=== PATIENT | female | born 1985 | race Caucasian/White ===

== ENCOUNTER 2025-03-30 05:42 | Emergency (ER) | payer OTHER, SELFPAY ==
--- NOTE | 2025-03-30 05:43 | EKG_ITS ---
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1985 Requested By: ED Temporary Provider Order Number: [id number] Reading MD: ED Temporary Provider Measurements Intervals [place] Rate: 118 P: NM: QRS: -57 QRSD: 102 T: 101 QT: 355 QTc: 499 Interpretive Statements ATRIAL FIBRILLATION WITH RAPID VENTRICULAR RESPONSE LEFT ANTERIOR FASCICULAR BLOCK [QRS AXIS <= -45, QR IN I, RS IN II] POSSIBLE ANTERIOR MYOCARDIAL INFARCTION , OF INDETERMINATE AGE [30 ms Q WAVE IN V3/V4, OR R < 0.2 mV IN V4] Compared to ECG 12/30/2022 13:21:05 Sinus tachycardia no longer present Atrial abnormality no longer present Myocardial infarct finding still present /store/S0/[id number]
[2025-03-30 05:49] VITALS: BP 129/99; PULSE 120; RESP 19; TEMP 35.5; O2SAT 97
--- NOTE | 2025-03-30 06:22 | PD.EDADULT ---
ED General RME/HPI General Chief complaint: Chest Pain Stated complaint: CHEST PAIN Time Seen by Provider: 03/30/25 05:57 Arrival date/time: 03/30/25 05:42 Related Data Home Medications ?Medication ?Instructions ?Recorded ?Confirmed Hydrocodone/Acetaminophen (NORCO 1 tab PO Q4-6HRPRN PRN PAIN #0 tabs 06/02/14 5/325) ibuprofen 800 mg tablet 800 mg PO Q6HR PRN PAIN #0 tabs 06/02/14 Allergies Allergy/AdvReac Type Severity Reaction Status Date / Time diphenhydramine Allergy Mild ANAPHALATIC Verified 12/30/22 12:41 REACTION Review of Systems Review of Systems Systems Reviewed: All systems reviewed, normal except as documented ED Exam Narrative Physical exam: GENERAL: NAD, AAOx3 HEENT: Moist mucosa. Eyes open, symmetrical, & clear CARDIO: Heart RRR, no obvious murmurs PULM: No noted coughing/dyspnea CTA B/L, no R/W/R GI: Abdomen soft, nondistended, no pain on palpation. BSx4 SKIN/MSK/EXT: No wounds/rashes/edema/amputations, no pain on palpation. Pedal pulses present B/L NEURO: AAOx3, no focal neuro deficits, able to move all 4 extremities Course Course Course Narrative: See MDM Quality Measures none Orders Category Date Time Status EKG (ED ONLY) *Do not use* NOW Care 03/30/25 05:43 Completed Fingerstick [Bedside Blood Glucose] NOW Care 03/30/25 06:32 Active EKG (ED Only) Stat Exams 03/30/25 05:43 Draft CBC [CBC] Stat Lab 03/30/25 07:36 Ordered CMP [Comprehensive Metabolic Panel] Stat Lab 03/30/25 07:36 Ordered Mag [Magnesium] Stat Lab 03/30/25 07:37 Ordered Gabapentin [Neurontin] Med 03/30/25 06:32 Discontinued 600 mg PO X1 ONE Gabapentin [Neurontin] Med 03/30/25 06:51 Discontinued 600 mg PO X1 ONE Metoprolol Tartrate [Lopressor] Med 03/30/25 07:35 Once 25 mg PO X1 ONE Pantoprazole [Protonix] Med 03/30/25 06:51 Discontinued 40 mg PO X1 ONE Vital Signs Vital signs: Vital Signs Temperature 96 F L 03/30/25 05:49 Pulse Rate 120 H 07/16/25 05:49 Respiratory Rate 19 03/30/25 05:49 Blood Pressure 129/99 H 03/30/25 05:49 Pulse Oximetry (%) 97 03/30/25 05:49 Oxygen Delivery Method Room Air 03/30/25 05:49 Discharge Plan Prescriptions/Referrals Prescriptions/Med Rec: No Action Hydrocodone/Acetaminophen (NORCO 5/325) 1 TAB tablet 1 tab PO Q4-6HRPRN PRN (Reason: PAIN) Qty: 0 Patient Comments: FOR PAIN ibuprofen 800 MG tablet 800 mg PO Q6HR PRN (Reason: PAIN) Qty: 0 Problem List Clinical Impression: Peripheral neuropathic pain Patient/Caregiver Discharge Instructions Additional Instructions: Patient at this time is safe for discharge with strict return precautions. Patient counseled on medication compliance. Should any symptoms recur or worsen patient is instructed to return to the ED. Print Language: Greenlandic Stand Alone Forms: Mireya Award Info., Patient Portal Info Letter MDM Narrative MDM hospital course: 39-year-old female with past medical history of CHF, diabetes, hypertension who presented to the ED due to burning sensation in her extremities. Patient states that he suddenly woke up at 4:30 in the morning complaining of burning sensation in bilateral upper extremities. Patient states she hasnt taken her meds in two days. Patient states she takes [place] for pain. No active signs of fluid overload at this time, no swelling, no JVD, no crackles on auscultation 0628: EKG reviewed no acute ST changes, Atrial fibrillation gabapentin [id number] but patient refused wants something stronger 0740: Patient eloped with incomplete work up after refusing treatment. Clinical Information Provided by patient and parent Medical Records Reviewed None Chronic Illness/Social Conditions which may negatively complicate care or outcome(s)-explain: CHF/CAD/Cardiac illness EKG Interpretation EKG #1: Date/time of EK03/30/25 6:53 am Medication Administration(s) Medication Administration History Discontinued Medications Gabapentin (Gabapentin 300 Mg Capsule) 600 mg PO X1 ONE Stop: 03/30/25 06:33 Gabapentin (Gabapentin 300 Mg Capsule) 600 mg PO X1 ONE Stop: 03/30/25 06:52 Last Admin: 03/30/25 07:01 Dose: Not Given Documented By: CVL Non-Admin Reason: Patient Refused Metoprolol Tartrate (Metoprolol Tartrate 25 Mg Tablet) 25 mg PO X1 ONE Stop: 03/30/25 07:36 Pantoprazole Sodium (Pantoprazole 40 Mg Tablet) 40 mg PO X1 ONE Stop: 03/30/25 06:52 Last Admin: 03/30/25 07:00 Dose: 40 mg Documented By: CHUN
[2025-03-30] MEDS: PANTOPRAZOLE 40 MG TABLET PO (07:00)
--- NOTE | 2025-03-30 07:40 | PC.NURSE ---
attempted to call pt by phone, wrong number on patients chart. unable to contact.
--- NOTE | 2025-03-30 07:40 | PC.NURSE ---
pt laying in RME room, instructed pt wait in lobby. went to discuss EKG with provider. went to call back pt fore re-assessment. pt not found in or outside of lobby. per senior security engineer, pt seen leaving in car.
== END 2025-03-30 07:40 | disposition left against medical advice (07) ==
PROVIDERS: Emergency Provider Student in an Organized Health Care Education/Training Program
DX: R07.9 Chest pain, unspecified (principal); Z53.29 Procedure and treatment not carried out because of patient's decision for other reasons; I48.91 Unspecified atrial fibrillation; I44.4 Left anterior fascicular block
CPT/HCPCS: 80053; 83735; 85025; 93005; 99283; A9270

== ENCOUNTER 2025-04-03 02:37 | Inpatient (IN) | payer OTHER, SELFPAY ==
[2025-04-03] VITALS (14 sets, daily range): BP systolic 117–140; BP diastolic 82–106; PULSE 59–84; RESP 14–94; TEMP 36–37; O2SAT 92–99; BMI 32.5; BMI 32.6
--- NOTE | 2025-04-03 02:46 | PD.EDDIZZY ---
ED Dizzyness RME/HPI General Chief Complaint: Dizziness Stated Complaint: DIZZINESS Time Seen by Provider: 04/03/25 03:47 Arrival date/time: 04/03/25 02:37 RME / HPI RME / HPI Narrative: This section includes all my notes and documentations, including HPI, PE, and ED course. Benny Tamayo MD HPI: ROS: All negative except as documented in HPI. Physical Exam: General: Alert and oriented. Eyes: Conjunctivae and lids clear. ENT: No nasal congestion. Neck: Supple. Lungs: No respiratory distress. Skin: Warm and dry. Neuro: Alert and oriented X 3. Physical Exam: General: Alert and oriented. No acute distress when remaining still. Eyes: Conjunctivae and lids clear. ENT: No nasal congestion. Neck: Supple. Heart: RRR. Lungs: No respiratory distress. Good air movement. No rhonchi, wheezing, rales. Abdomen: Soft and nontender. Normal bowel sounds. No distension. No rebound or guarding. Back: No CVA tenderness. Skin: Warm and dry. Neuro: Alert and oriented X 3. Physical Exam: General: Alert and oriented. No acute distress. Eyes: Conjunctivae and lids clear. EOMI. PERRL. ENT: No nasal congestion. Pharynx normal. Tympanic membrane normal bilaterally. Neck: Supple. No lymphadenopathy. No JVD. Heart: RRR. Lungs: No respiratory distress. Good air movement. No rhonchi, wheezing, rales. Chest: No tenderness. Abdomen: Soft and nontender. Normal bowel sounds. No distension. No rebound or guarding. Back: No CVA tenderness. Legs: No clubbing, cyanosis, edema. Skin: Warm and dry. Neuro: Alert and oriented X 3. Cranial Nerves II-XII grossly intact. No peripheral motor deficits. Musculoskeletal: All major joints and bones are not tender with no limited ROM. I reviewed EMS notes. I reviewed all diagnostic test results: My interpretation of the EKG is: Sinus rhythm (72 bpm) with nonspecific ST-T changes. Benny Tamayo MD My interpretation of the chest x-ray is: My review of the CT report is: Blood tests and urine tests Covid/Influenza At this point, diagnoses include: Treatment here included: Xanax 0.5 mg. Significant improvement Recommended Not yet done: I discussed the case with our hospitalist. About the presentation and exam and diagnostics and treatments here. And need of further care in the hospital. Will accept the patient. Not yet done: Based on my best medical judgment, made decision no further evaluation or treatment indicated at this time. Patient understands and agrees to the discharge instructions customized and printed, see below. Benny Tamayo MD Related Data Home Medications ?Medication ?Instructions ?Recorded ?Confirmed acetaminophen 500 mg tablet mg 04/03/25 baclofen 10 mg tablet mg 04/03/25 escitalopram oxalate 10 mg tablet 10 mg PO QDAY 04/03/25 04/03/25 metoprolol tartrate 25 mg tablet mg 04/03/25 Allergies Allergy/AdvReac Type Severity Reaction Status Date / Time diphenhydramine Allergy Mild ANAPHALATIC Verified 12/30/22 12:41 REACTION Review of Systems Review of Systems Systems Reviewed: All systems reviewed, normal except as documented Past Medical History Social History SMOKING STATUS: Never smoker ED Exam Narrative Physical exam: Refer to HPI Course Quality Measures none Orders Category Date Time Status EKG (ED ONLY) *Do not use* NOW Care 04/03/25 03:28 Active Saline [Insert IV] NOW Care 04/03/25 03:48 Active Straight [In and Out Catheter] X1 Care 04/03/25 03:48 Active EKG (ED Only) Stat Exams 04/03/25 03:28 Draft BMP [Basic Metabolic Panel] Stat Lab 04/03/25 03:48 Ordered CBC Stat Lab 04/03/25 03:49 Ordered Free T4 (Free Thyroxine) Stat Lab 04/03/25 03:48 Ordered Magnesium Stat Lab 04/03/25 03:48 Ordered TSH [Thyroid Stimulating Hormone] Stat Lab 04/03/25 03:48 Ordered Troponin I Stat Lab 04/03/25 03:48 Ordered UA, C/S IF [Urinalysis, C/S if Indicated] Stat Lab 04/03/25 03:49 Ordered ALPRazoLAM [Xanax] Med 04/03/25 03:36 Discontinued 0.5 mg PO X1 ONE Dizziness MDM Narrative MDM Narrative:: Scribe Attestation: I, Sera Clayton, am scribing for and in the presence of Dr. Tamayo. Provider Notation: Although this document has been carefully reviewed, there may still be some phonetic and other typographical errors.? These errors are purely grammatical due to imperfections in the software program and should not be construed in any way to? compromise the substance of the patient's medical care during this visit. Patient data External records reviewed:: [facility] previous records and EMS form Clinical information provided by:: patient and EMS Social determinants that could affect healthcare access:: none Patient has the following chronic illnesses:: None reported How is presenting disease/condition affected by chronic disease/condition?: exacerbated by Evaluation data The following diagnostics were reviewed and interpreted by me:: lab results and EKG tracing(s) (My interpretation of the EKG is: Sinus rhythm (72 bpm) with nonspecific ST-T changes. Benny Tamayo MD) Lab and/or radiology exams considered but not ordered:: None Medications / Prescriptions Medications or Prescriptions considered but not ordered:: None Medication administrations:: Medication Administration History Discontinued Medications Alprazolam (Alprazolam 0.25 Mg Tablet) 0.5 mg PO X1 ONE Stop: 04/03/25 03:37 Xanax 0.5 mg Discharge Plan Prescriptions/Referrals Prescriptions/Med Rec: No Action acetaminophen 500 mg tablet baclofen 10 mg tablet metoprolol tartrate 25 mg tablet Patient Comments: TAKE 1 TABLET BY MOUTH TWICE A DAY escitalopram oxalate 10 mg tablet 10 mg PO QDAY Referrals: No Primary/Family,Physician [Primary Care Provider] - In 1 week Patient/Caregiver Discharge Instructions Print Language: Serbian
--- NOTE | 2025-04-03 03:28 | EKG_ITS ---
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1985 Requested By: Benny Hurt Order Number: [id number] Reading MD: Benny Hurt Measurements Intervals [place] Rate: 72 P: 48 CO: 167 QRS: -61 QRSD: 107 T: 92 QT: 447 QTc: 493 Interpretive Statements SINUS RHYTHM POSSIBLE LEFT ATRIAL ENLARGEMENT [-0.1mV P-WAVE IN V1/V2] INCOMPLETE RIGHT BUNDLE BRANCH BLOCK [90+ ms QRS DURATION, TERMINAL R IN V1/V2, 40+ ms S IN I/aVL/V4/V5/V6] LEFT ANTERIOR FASCICULAR BLOCK [QRS AXIS <= -45, QR IN I, RS IN II] POSSIBLE ANTERIOR MYOCARDIAL INFARCTION , OF INDETERMINATE AGE [30 ms Q WAVE IN V3/V4, OR R < 0.2 mV IN V4] Compared to ECG 03/30/2025 05:52:53 Incomplete right bundle-branch block now present Atrial fibrillation no longer present Myocardial infarct finding still present /store/S0/[id number]/[id number].pdf
--- NOTE | 2025-04-03 04:00 | PC.NURSE ---
THIS RN ATTEMPTED IV ON PATIENT FOR BLOOD WORK. PER PT I DO NOT HAVE ANY GOOD VEINS I USED TO USE IV DRUGS YOU HAVE TO USE A MACHINE TO FIND A VEIN. . THIS RN EXPLAINED THE IMPORTANCE OF HAVING TO ATTEMPT TO INSERT IV TO DRAW BLOOD DUE TO REPORTED CHEST PAIN. PER PATIENT I WILL LET YOU POKE ME ONCE AND THEN YOU HAVE TO USE A MACHINE. .
--- NOTE | 2025-04-03 04:01 | PD.EDANX ---
ED Anxiety RME/HPI General Chief Complaint: Dizziness Stated Complaint: DIZZINESS Time Seen by Provider: 04/03/25 03:47 Arrival date/time: 04/03/25 02:37 RME / HPI RME / HPI narrative: This section includes all my notes and documentations, including HPI, PE, and ED course. Benny Tamayo MD HPI: 39 y/o female BIBA from home complaining of anxiety. Difficult obtaining history from the patient. Because she has trouble answering questions directly. When she repeatedly cries out for help. But doesn't express how she can be helped. She reports chest discomfort. But has trouble describing the quality and quantity and localizing the discomfort. Uncertain about exacerbating factors or relieving factors. No other obvious concerns. ROS: All negative except as documented in HPI. Physical Exam: General: Alert. Appears anxious. Eyes: Conjunctivae and lids clear. ENT: No nasal congestion. Neck: Supple. Heart: RRR. Lungs: No respiratory distress. Good air movement. No rhonchi, wheezing, rales. Abdomen: Soft and nontender. Skin: Warm and dry. Neuro: Cranial nerves II to XII grossly normal. No peripheral motor deficits. I reviewed EMS notes. My interpretation of the EKG is: Sinus rhythm (72 bpm) with nonspecific ST-T changes. I ordered Xanax and diagnostic tests At 6 AM on 04/03/25, the care of the patient was transferred to Dr. Epps. Benny Tamayo MD Related Data Home Medications ?Medication ?Instructions ?Recorded ?Confirmed acetaminophen 500 mg tablet mg 04/03/25 baclofen 10 mg tablet mg 04/03/25 escitalopram oxalate 10 mg tablet 10 mg PO QDAY 04/03/25 04/03/25 metoprolol tartrate 25 mg tablet mg 04/03/25 Allergies Allergy/AdvReac Type Severity Reaction Status Date / Time diphenhydramine Allergy Mild ANAPHALATIC Verified 12/30/22 12:41 REACTION Review of Systems Review of Systems Systems Reviewed: All systems reviewed, normal except as documented ED Exam Narrative Physical exam: Refer to [facility] Course Quality Measures none Orders Category Date Time Status EKG (ED ONLY) *Do not use* NOW Care 04/03/25 03:28 Active Saline [Insert IV] NOW Care 04/03/25 03:48 Active Straight [In and Out Catheter] X1 Care 04/03/25 03:48 Active EKG (ED Only) Stat Exams 04/03/25 03:28 Draft BMP [Basic Metabolic Panel] Stat Lab 04/03/25 03:48 Ordered CBC Stat Lab 04/03/25 03:49 Ordered Free T4 (Free Thyroxine) Stat Lab 04/03/25 03:48 Ordered Magnesium Stat Lab 04/03/25 03:48 Ordered TSH [Thyroid Stimulating Hormone] Stat Lab 04/03/25 03:48 Ordered Troponin I Stat Lab 04/03/25 03:48 Ordered UA, C/S IF [Urinalysis, C/S if Indicated] Stat Lab 04/03/25 03:49 Ordered ALPRazoLAM [Xanax] Med 04/03/25 03:36 Discontinued 0.5 mg PO X1 ONE Anxiety MDM Narrative MDM Narrative: Scribe Attestation: I, Sera Clayton, am scribing for and in the presence of Dr. Tamayo. Provider Notation: Although this document has been carefully reviewed, there may still be some phonetic and other typographical errors.? These errors are purely grammatical due to imperfections in the software program and should not be construed in any way to? compromise the substance of the patient's medical care during this visit. 39 y/o female BIBA from home complaining of anxiety. Difficult obtaining history from the patient. Because she has trouble answering questions directly. When she repeatedly cries out for help. But doesn't express how she can be helped. She reports chest discomfort. But has trouble describing the quality and quantity and localizing the discomfort. Uncertain about exacerbating factors or relieving factors. No other obvious concerns. Patient data External records reviewed:: [facility] previous records (Reviewed prior ED records from 03/30/25. Patient was seen for Peripheral neuropathic pain.) and EMS form Clinical information provided by:: patient and EMS Social determinants that could affect healthcare access:: mental health (Anxiety) Patient has the following chronic illnesses:: None reported How is presenting disease/condition affected by chronic disease/condition?: no chronic disease Evaluation data The following diagnostics were reviewed and interpreted by me:: EKG tracing(s) (My interpretation of the EKG is: Sinus rhythm (72 bpm) with nonspecific ST-T changes. Benny Tamayo MD) Lab and/or radiology exams considered but not ordered:: None Interpretation Summary: Diagnostic tests are pending. Medications / Prescriptions Medications or Prescriptions considered but not ordered:: None Medication administrations:: Medication Administration History Discontinued Medications Alprazolam (Alprazolam 0.25 Mg Tablet) 0.5 mg PO X1 ONE Stop: 04/03/25 03:37 Consultations Consultation(s) initiated? (list below): No Diagnosis Differential diagnosis anxiety: hyperventilation, panic disorder and acute anxiety Most likely diagnosis given after review of the tests above:: Diagnostic tests are pending. Admission Indicated Admission indicated?: not indicated Explain why admission is indicated or not indicated:: Diagnostic tests are pending. Admission Request Was there a request for admission?: No Disposition Plan Disposition Plan: other (specify) (At 6 AM on 04/03/2025, the care of the patient was transferred to Dr. Epps. ) Discharge Plan Prescriptions/Referrals Prescriptions/Med Rec: No Action acetaminophen 500 mg tablet baclofen 10 mg tablet metoprolol tartrate 25 mg tablet Patient Comments: TAKE 1 TABLET BY MOUTH TWICE A DAY escitalopram oxalate 10 mg tablet 10 mg PO QDAY Referrals: No Primary/Family,Physician [Primary Care Provider] - In 1 week Problem List Clinical Impression: Anxiety Patient/Caregiver Discharge Instructions Print Language: Greenlandic
[2025-04-03 04:42] LABS: Collection Type, Urine Clean Catch; RBC,Urine 0 /hpf (0-3); WBC,Urine 0 /hpf (0-5)
--- NOTE | 2025-04-03 04:50 | PC.NURSE ---
INFORMED PROVIDER RUDI FREDERICK IS A HARD STICK. UNABLE TO GET ACCESS ON PATIENT. ICU CALLED FOR ASSISTANCE WITH US GUIDED IV. NO ORDERS RECEIVED.
[2025-04-03 05:16] LABS: Bilirubin,Urine Negative (Negative); Blood,Urine Negative (Negative); Clarity,Urine Turbid (Clear/Hazy); Color,Urine Yellow (Lt Yel-Yel); Culture Indicated,Urine Not Indicated; Glucose, Urine Negative (Negative); Hyaline Casts,Urine < 1 /hpf (0-1); Ketones,Urine Negative (Negative); Leukocyte Esterase,Urine Negative (Negative); Nitrite,Urine Negative (Negative); PH,Urine 6.0 (5.0-7.0); Protein,Urine 1+ (Neg - Trace); Specific Gravity,Urine 1.012 (1.001-1.035); Squamous Epithelial Cell,Urine 18 /hpf (0-5); Urobilinogen,Urine 8.0 mg/dL (0.0-1.0)
--- NOTE | 2025-04-03 05:20 | PC.NURSE ---
INFORMED PROVIDER RUDI ICU UNSUCCESSFUL IN OBTAINING US GUIDED IV. WILL REATTEMPT TO GAIN IV ACCESS.
[2025-04-03 05:46] LABS: Basophils # (Auto) 0.1 Thou/mm3 (0.0-0.2); Basophils % (Auto) 1 % (0-2.5); Eosinophils # (Auto) 0.0 Thou/mm3 (0.0-0.5); Eosinophils % (Auto) 0 % (0-10); Hematocrit 43.7 % (36.0-46.0); Hemoglobin 14.0 g/dL (12.0-16.0); Immature Granulocytes Auto 0.05 Thou/mm3 (0.00-0.00); Lymphocytes # (Auto) 2.5 Thou/mm3 (1.0-4.8); Lymphocytes % (Auto) 28 % (10-50); Mean Corpuscular HGB Conc 32.0 g/dl (31.0-37.0); Mean Corpuscular Hemoglobin 24.8 pg (25.0-35.0); Mean Corpuscular Volume 78 fL (80-100); Monocytes # (Auto) 0.8 Thou/mm3 (0.0-0.8); Monocytes % (Auto) 9 % (0-12); Neutrophils # (Auto) 5.4 Thou/mm3 (1.8-7.7); Neutrophils % (Auto) 61 % (37-80); Nucleated Red Blood Cell # 0.02 Thou/mm3 (0.00-0.00); Nucleated Red Blood Cell % 0 /100 WBC (0); Platelet Count 241 Thou/mm3 (140-440); RDW Standard Deviation 47.9 fL (36.4-46.3); Red Blood Count 5.64 Miln/mm3 (4.00-5.20); White Blood Count 9.0 Thou/mm3 (3.6-11.0)
[2025-04-03 06:07] LABS: Amphetamine/Methamp Scrn,U Negative (Negative); Barbiturate Screen,Urine Negative (Negative); Benzodiazepines Screen,Urine Negative (Negative); Benzoylecgonine Screen, Ur Negative (Negative); Fentanyl Screen,Urine Negative (Negative); Opiate Screen,Urine Positive (Negative); THC Screen,Urine Positive (Negative)
--- NOTE | 2025-04-03 06:16 | PD.EDADDENDU ---
Emergency Room Addendum <Wanda Christensen - Last Filed: 04/03/25 08:52> Addendum Narrative: 0600: Care assumed from Dr. Tamayo, the previous shift emergency physician. Past medical, surgical, social and family history reviewed. Vitals and home medications reviewed. I will assume the care of the patient at this time, pending labs and reassessment. Please refer to the emergency department record for history and examination from initial visit.?The following addendum documentation note is intended to reflect any pending information, findings, or radiology results not included in the patient?s initial chart. 0634: Notified by RN that troponin is elevated, will repeat EKG. We reviewed all the results, analysis, and treatment plans. Discussed in great length the importance of being admitted for further work-up. Patient is amenable to admission. 08:[address] Fernando (gas regulator repairer waterfront director for the ER). We discussed the patient's case in detail. He said that we should heparinize the patient and get her admitted and he will see her. I then called the resident for Dr. Chau at 08:30. We discussed patient's case in detail as well and they will come down and see the patient for admission. Patient's hypokalemia is being treated as well as her hypomagnesemia. Initial troponin 3.0 and repeat 2.8. EKGs are unchanged and there was a 4-1/2-hour gap between them. 03:32 EKG #1: Normal sinus rhythm at 72 with left axis deviation, no ectopy. ST and T wave abnormalities in leads I, aVL. Q waves in V3 V4 as well as leads III and aVF. No STEMI. 07:53 EKG #2: Normal sinus rhythm at 75 with left axis deviation, no ectopy, ST and T wave abnormalities in leads I and aVL. Q waves in V1 and V2 as well as questionable Q waves in the inferior leads. No STEMI. No appreciable change from prior <Ismael Dolan MD - Last Filed: 04/03/25 08:35> Addendum Narrative: 0600: Care assumed from Dr. Tamayo, the previous shift emergency physician. Past medical, surgical, social and family history reviewed. Vitals and home medications reviewed. I will assume the care of the patient at this time, pending labs and reassessment. Please refer to the emergency department record for history and examination from initial visit.?The following addendum documentation note is intended to reflect any pending information, findings, or radiology results not included in the patient?s initial chart. 0634: Notified by RN that troponin is elevated, will repeat EKG. 08:[address] Fernando (gas regulator repairer waterfront director for the ER). We discussed the patient's case in detail. He said that we should heparinize the patient and get her admitted and he will see her. I then called the resident for Dr. Chau at 08:30. We discussed patient's case in detail as well and they will come down and see the patient for admission. Patient's hypokalemia is being treated as well as her hypomagnesemia. Initial troponin 3.0 and repeat 2.8. EKGs are unchanged and there was a 4-1/2-hour gap between them. 03:32 EKG #1: Normal sinus rhythm at 72 with left axis deviation, no ectopy. ST and T wave abnormalities in leads I, aVL. Q waves in V3 V4 as well as leads III and aVF. No STEMI. 07:53 EKG #2: Normal sinus rhythm at 75 with left axis deviation, no ectopy, ST and T wave abnormalities in leads I and aVL. Q waves in V1 and V2 as well as questionable Q waves in the inferior leads. No STEMI. No appreciable change from prior Critical Care Time <Wanda Christensen - Last Filed: 04/03/25 08:52> Critical Care Time Critical Care Time: Yes Total Critical Care Time (min.): 35 Attestation: The high probability of sudden, clinically significant deterioration in the patient's condition required the highest level of my preparedness to intervene urgently. The services I provided to this patient were to treat and/or prevent clinically significant deterioration. Services included the following: chart data review, reviewing nursing notes and/or old charts, documentation time, marketing database consultant collaboration regarding findings and treatment options, medication orders and management, direct patient care, vital sign assessments and ordering, interpreting and reviewing diagnostic studies and lab tests. Aggregate critical care time includes only time during which I was engaged in work directly related to the patient's care, as described above, whether at bedside or elsewhere in the Emergency Department. It did not include time spent performing other reported procedures or the services of residents, students, nurses or physician assistants.
[2025-04-03 06:21] LABS: Alcohol, Blood Medical < 3.0 mg/dL (0-10.0); Anion Gap 12 (7-16); BUN/Creatinine Ratio 12 Ratio (12-20); Blood Urea Nitrogen 11 mg/dL (9-23); Calcium 8.3 mg/dL (8.3-10.6); Carbon Dioxide 22.4 mMol/L (20.0-31.0); Chloride 99 mMol/L (98-107); Creatinine (Component) 0.9 mg/dL (0.6-1.3); Estimated Creatinine Clearance 88.3 mL/min (>60); Free T4 (Free Thyroxine) 0.83 ng/dL (0.89-1.76); Glucose 97 mg/dL (74-106); Magnesium 1.2 mg/dL (1.6-2.6); Osmolality,Calculated 265 (275-295); Potassium 4.0 mMol/L (3.4-5.1); Sodium 133 mMol/L (136-145); Thyroid Stimulating Hormone 4.11 uIU/mL (0.55-4.78); eGFR > 60 See Note
[2025-04-03 06:32] LABS: Troponin I 3.041 ng/mL (0.0-0.045)
--- NOTE | 2025-04-03 06:43 | EKG_ITS ---
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1985 Requested By: Ismael Cooper Order Number: [id number] Reading MD: Ismael Cooper Measurements Intervals [place] Rate: 75 P: 61 [place]: 167 QRS: -72 QRSD: 106 T: 84 QT: 446 QTc: 501 Interpretive Statements SINUS RHYTHM LEFT ATRIAL ENLARGEMENT [-0.15mV P-WAVE IN V1/V2] INCOMPLETE RIGHT BUNDLE BRANCH BLOCK [90+ ms QRS DURATION, TERMINAL R IN V1/V2, 40+ ms S IN I/aVL/V4/V5/V6] LEFT ANTERIOR FASCICULAR BLOCK [QRS AXIS <= -45, QR IN I, RS IN II] POSSIBLE ANTERIOR MYOCARDIAL INFARCTION , OF INDETERMINATE AGE [30 ms Q WAVE IN V3/V4, OR R < 0.2 mV IN V4] Compared to ECG 04/03/2025 03:32:26 No significant changes /store/S0/[id number]
--- NOTE | 2025-04-03 07:32 | PC.NURSE ---
Pt awake alert, GCS15 upon assumption of care, denies any current pain, states she feels loopy. Pt request to rest, pt hypertensive on tele. Call corona in reach, will cont w/poc
[2025-04-03 07:48] LABS: Troponin I 2.814 ng/mL (0.0-0.045)
--- NOTE | 2025-04-03 07:54 | XR_ITS ---
Examination: AP chest single view. Technique: Sitting portable AP chest single view. Date and time: April 03, 2025, 0811 hrs., Comparison July 14, 2009. Indications: Chest pain today. Findings: Moderate enlargement cardiac contour. No pneumonia or pulmonary edema. Mild osteopenia. Impression: Moderate enlargement cardiac contour, differential would include pericardial effusion.
[2025-04-03] MEDS: Magnesium Sulfate 4 GM Ivpb 4 GM/50 ML BAG IV (07:59)
--- NOTE | 2025-04-03 08:38 | XR_ITS ---
Examination: CT brain head without contrast. 2-D sagittal coronal reconstructions Date and time of exam:April 03, 2025, 0918 hrs. Indications: Onset dizziness beginning this morning CTDI: vol (mGy):47.5 DLP: (mGycm):942 Technique: Multiple CT axial sections of the brain have been obtained, 5 mm slice thickness. Contrast has not been administered. 2-D sagittal, coronal reconstructions have been obtained Low dose protocols were performed. One or more of the following dose reduction techniques were used; automated exposure control, adjustment of the mA and/or KV according to patient size, use of iterative reconstruction technique. Findings: No significant ventricular enlargement. Intra-axial or extra-axial hemorrhage density is not seen. No mass effect or midline shift Basal cisterns are not remarkable. Fourth ventricle is midline. Cranial vault intact. Impression: Negative for acute hemorrhage, mass effect or midline shift
--- NOTE | 2025-04-03 08:45 | ECHO_ITS ---
Transthoracic Echo Report Ht (in): 64 Wt (lb): 190 Exam Location: Echo Lab Status: Inpatient Cost Estimating Clerk: Amy Mckinney Indications: Procedure Performed: BP: 132 / 99 HR: 79 Technical Quality: Technically difficult study MEASUREMENTS (Male / Female) Normal Values 2D ECHO LV Diastolic Diameter PLAX 5.6 cm 4.2 - 5.9 / 3.9 - 5.3 cm LV Systolic Diameter PLAX 5.1 cm IVS Diastolic Thickness 1.1 cm 0.6 - 1.0 / 0.6 - 0.9 cm LVPW Diastolic Thickness 1.4 cm 0.6 - 1.0 / 0.6 - 0.9 cm LV Relative Wall Thickness 0.4 LVOT Diameter 2.0 cm Aortic Root Diameter 2.7 cm LA Systolic Diameter LX 3.7 cm 3.0 - 4.0 / 2.7 - 3.8 cm LA Volume Index 26.2 cm?/m? 16 - 28 cm?/m? M-MODE Aortic Root Diameter MM 1.6 cm LA Systolic Diameter MM 4.2 cm LA Ao Ratio MM 2.6 AV Cusp Separation MM 1.2 cm DOPPLER MV Area PHT 8.5 cm? MR Peak Velocity 298.0 cm/s MR Peak Gradient 35.5 mmHg Mitral E Point Velocity 59.2 cm/s Mitral A Point Velocity 32.0 cm/s Mitral E to A Ratio 1.9 LV E' Lateral Velocity 6.3 cm/s Mitral E to LV E' Lateral Ratio 9.4 LV E' Septal Velocity 2.9 cm/s Mitral E to LV E' Septal Ratio 20.1 TR Peak Velocity 240.0 cm/s TR Peak Gradient 23.0 mmHg PV Peak Velocity 66.5 cm/s PV Peak Gradient 1.8 mmHg FINDINGS Left Ventricle Left ventricle is dilated measured 5.6 cm with severe global hypokinesis severely depressed left ventricle ejection fraction of 15%. There is evidence of apical mural thrombus 1 cm wide and 2 cm in length along the anteroapical segments. This appears to be chronic thrombus in echogenicity. Right Ventricle The right ventricle is normal in size and systolic function. Left Atrium The left atrium is normal by two-dimensional, color flow and Doppler imaging with no structural abnormalities, no thrombus formation present. Right Atrium The right atrial cavity size is moderately increased. Atrial Septum The interatrial septum appears normal with no evidence of a shunt. Aorta The aorta is normal by two-dimensional, color flow and Doppler interrogation. Mitral Valve The mitral valve is normal by two-dimensional, color flow and Doppler interrogation. Mild mitral regurgitation. Aortic Valve Trace aortic valve regurgitation. Tricuspid Valve The tricuspid valve is normal by two-dimensional, color flow and Doppler interrogation. There is mild tricuspid valve regurgitation. Pulmonic Valve The pulmonic valve is not well visualized. There is no significant pulmonic valve regurgitation. Vessels Inferior vena cava not well visualized. Pericardium The pericardium is normal by two-dimensional imaging. There is no significant pericardial effusion. CONCLUSIONS Indication: NSTEMI Dilated nonischemic cardiomyopathy with severe global hypokinesis ejection fraction of 15% with evidence of left ventricular apical mural thrombus, 2 cm x 1 cm appears to be chronic with echogenic appearance The RV is normal in size and systolic function. The RA cavity size is moderately increased. Mild mitral regurgitation due to dilated mitral annulus. Mild tricuspid regurgitation with normal PA pressures. Mean show Sandra Stearnsshahida (Electronically Signed) Final Date: 03 April 2025 15:40
[2025-04-03 13:24] LABS: Alanine Aminotransferase 417 U/L (10-49); Albumin, Serum 3.3 gm/dL (3.5-5.0); Alkaline Phosphatase 167 U/L (46-116); Aspartate Amino Transferase 414 U/L (0-34); Bilirubin,Direct 0.7 mg/dL (0.0-0.3); Bilirubin,Total 1.4 mg/dL (0.3-1.2); Total Protein 6.1 gm/dL (5.7-8.2)
[2025-04-03 13:29] LABS: Troponin I 2.984 ng/mL (0.0-0.045)
[2025-04-03 13:47] LABS: INR 1.8 (0.9-1.3); Partial Thromboplastin Time 31.0 Seconds (22.0-36.0); Prothrombin Time 19.0 Seconds (9.0-12.2)
[2025-04-03] MEDS: HYDROcodone/APAP 5/325 TABLET 1 TAB PO ×2 (13:51→20:18)
[2025-04-03] MEDS: SERTRALINE HCL 25 MG TABLET PO ×2 (13:59→14:34)
[2025-04-03] MEDS: Heparin/D5w 25K 250 ML Ivpb 25,000 UNIT/250 ML BAG 10 UNIT IV (13:59)
--- NOTE | 2025-04-03 14:09 | EKG_ITS ---
[facility] Test Date: 2025-04-03 Pat Name: TRENT WADE Department: Room: S274A Gender: Female Spine Supervisor: ADRIANNE : 1985 Requested By: Jakob Castellanos Order Number: [id number] Reading MD: Jakob Castellanos Measurements Intervals [place] Rate: 77 P: 50 ME: 155 QRS: -65 QRSD: 101 T: 75 QT: 437 QTc: 495 Interpretive Statements SINUS RHYTHM POSSIBLE LEFT ATRIAL ENLARGEMENT LEFT ANTERIOR FASCICULAR BLOCK POSSIBLE ANTERIOR MYOCARDIAL INFARCTION , OF INDETERMINATE AGE Compared to ECG 04/03/2025 07:53:58 Incomplete right bundle-branch block no longer present Myocardial infarct finding still present /store/S0/[id number]/[id number].pdf
[2025-04-03] MEDS: LOSARTAN POTASSIUM 25 MG TABLET PO (14:34)
[2025-04-03] MEDS: METOPROLOL TARTRATE 25 MG TABLET PO ×2 (14:34→20:19)
[2025-04-03] MEDS: HEPARIN SOD INJ 5000 UNIT/ML VIAL 4000 UNIT IV (14:35)
--- NOTE | 2025-04-03 14:35 | ESHP_ITS ---
<Statement entered by Jakob Castellanos MD - 04/03/25 15:29> Patient was seen and examined in the ED. Patient's mother reported the patient had chest discomfort radiating to her left arm. She also with the patient has a history of anxiety at baseline and takes medications for it. She also has a history of meth use 2 weeks ago. Patient was anxious and reported that she feels diaphoretic clammy and she gets pain in her arm when she is in anxiety. She also reported to have back pain and is taking [place] for it at home. Follows [facility] as outpatient. Patient's vitals showed blood pressure within normal limits. Troponin I peaked at 3.04. EKG showed T wave inversions in lead V1 and V2. QTc was prolonged at 501. Avoid QTc prolonging agent. U tox was positive for opiates and THC. Head CT showed no acute changes. Chest x-ray was concerning for enlargement of cardiac control concerning for pericardial effusion. Cardiology has been consulted recommended to continue heparin drip and resume patient's home medications for anxiety. N.p.o. after midnight. Possible cardiac catheterization tomorrow. Will follow-up with echocardiogram. registered veterinary technician reported noticed thrombus in LV. Will follow-up with final official read. He recommended to continue aspirin and heparin per ACS protocol. Home medications were resumed. Electrolytes were repleted. All labs and orders were reviewed. I discussed and supervised with the internal communications manager physician who took care of this patient. I personally saw and examined the patient. I agree with most of the assessment and plan. Disclaimer: Despite multiple revisions, due to the dictation software being used, the document bellow may not be free of grammatical errors including phonetic/typographic errors. However, this does not deter from our commitment to providing health care in the patient's best interest in mind. Plan of care discussed with attending Physician Dr. lily Castellanos MD PGY-3 Documentation for date of: 04/03/25 HPI History of Present Illness Chief complaint: Dizziness History of present illness: Ms. Argueta is a 39F with history of DM2, herniated disc, meth use, and depression BIBA for dizziness. Pt states that her mom accidentally gave her double the dosage of what she's supposed to be taking, but unable to recall which medications were given to her. She has no recollection of memories up to her presence to the ER. On further evaluation, mom reports conflicting stgory. She called the ambulance because pt complained of chest pain, SOB, shocking sensation down her left arm, and was diaphoretic. On exam, pt was sleeping quietly in the room. Denies chest pain, shortness of breathe, abdominal pain, jaw pain, pain in extremities, or fever. Her only complaints are back pain and nausea. She was admitted for NSTEMI. ED Course In the ED, troponin was 3.04, 2.81, and 2.98. 1st EKG shows Normal sinus rhythm at 72 with left axis deviation, no ectopy. ST and T wave abnormalities in leads I, aVL. Q waves in V3 V4 as well as leads III and aVF. No STEMI. 2nd EKG shows Normal sinus rhythm at 75 with left axis deviation, no ectopy, ST and T wave abnormalities in leads I and aVL. Q waves in V1 and V2 as well as questionable Q waves in the inferior leads. No STEMI. No appreciable change from prior. Labs otherwise unremarkable. UDS positive for opiates and THC. CT head negative. CXR shows moderate enlargement cardiac contour, differential would include pericardial effusion. ROS * Constitutional: NAD, denies fever/chills. Inattention, difficulty following command. * GI: + Nausea, vomiting * CV: Denies chest pain or palpitations. * Resp: Denies SOB. * : Denies dysuria, CVA tenderness, suprapubic tenderness. * Neuro: Denies dizziness, no focal deficits. * Skin: dry and intact. Past Medical History * herniated disc * DM * Depression Social History * Lives at home with boyfriend, independent baseline. * History of 3 pack years smoking. Denies alcohol and drug use. Surgical History * x 3 Allergies * Reports allergy to Benadryl Home Meds * Acetaminophen 500mg PO PRN * Alprazolam 0.5mg PO BID PRN * Baclofen 10mg PO BID PRN * Bumetanide 2mg PO BID * Cephalexin 500mg PO BID * Escitalopram 10mg PO QD * Losartan 25mg PO QD * Metformin 500mg PO QD * Metoprolol succinate 25mg PO BID * Setraline 25mg PO QD * Spironlactone 25mg PO QD Review of Systems Review of Systems Systems Reviewed: All systems reviewed, normal except as documented Exam Vital Signs Temp Pulse Resp BP Pulse Ox O2 Del Method 96.9 F 77 18 138/102 H 94 L Room Air 04/03/25 12:00 04/03/25 12:00 04/03/25 12:00 04/03/25 12:00 04/03/25 12:00 04/03/25 12:00 Narrative Exam General: Inattentive, hyperactive, NAD. Skin: Good turgor, no rash, unusual bruising or prominent lesions Heart: No cardiomegaly or thrills; regular rate and rhythm, no murmur or gallop Lungs: Clear to auscultation and percussion. No rales, wheeze, or rhonchi Abdomen: Bowel sounds normal, no tenderness, organomegaly, masses, or hernia Back: No CVA tenderness Extremities: No amputations or deformities, cyanosis, edema or varicosities, peripheral pulses intact Results: Labs 04/04/25 04:00 04/04/25 04:00 Labs: Short CBC 04/03/25 Range/Units 05:25 WBC 9.0 (3.6-11.0) Thou/mm3 Hgb 14.0 (12.0-16.0) g/dL Hct 43.7 (36.0-46.0) % Plt Count 241 (140-440) Thou/mm3 BMP 04/03/25 05:25 Sodium 133 L Potassium 4.0 Chloride 99 Carbon Dioxide 22.4 BUN 11 Creatinine 0.9 Glucose 97 Calcium 8.3 Cardiac Enzymes 04/03/25 04/03/25 04/03/25 Range/Units 05:25 06:50 12:45 Troponin I 3.041 H* 2.814 H* D 2.984 H* (0.0-0.045) ng/mL Liver Function 04/03/25 Range/Units 12:45 Total Bilirubin 1.4 H (0.3-1.2) mg/dL Direct Bilirubin 0.7 H (0.0-0.3) mg/dL AST 414 H (0-34) U/L ALT 417 H (10-49) U/L Alkaline Phosphatase 167 H (46-116) U/L Albumin 3.3 L (3.5-5.0) gm/dL Urine 04/03/25 Range/Units 04:36 Urine Color Yellow (Lt Yel-Yel) Urine Clarity Turbid A (Clear/Hazy) Urine pH 6.0 (5.0-7.0) Ur Specific [place] 1.012 (1.001-1.035) Urine Protein 1+ A (Neg - Trace) Urine Glucose (UA) Negative (Negative) Quality Measures Quality Measures VTE therapy (Heparin drip) Medications Home Medications and Allergies Home Medications ?Medication ?Instructions ?Recorded ?Confirmed ?Type acetaminophen 500 mg tablet 500 mg PO .4-6 PRN pain 04/03/25 History alprazolam 0.5 mg tablet (Xanax) 0.5 mg PO BID PRN anx iety 04/03/25 04/03/25 History baclofen 10 mg tablet 10 mg PO BID PRN muscle spas m 04/03/25 04/03/25 History bumetanide 2 mg tablet 2 mg PO BID 04/03/25 5 History cephalexin 500 mg capsule 500 mg PO BID 04/03/2504/03 History escitalopram oxalate 10 mg tablet 10 mg PO QDAY 04/03/25 History losartan 25 mg tablet 25 mg PO QDAY 04/03/2504/03 History metformin 500 mg tablet 500 mg PO QDAY 04/03/2503/16 History metoprolol succinate 25 mg 25 mg PO BID 04/03/2504/03 History tablet,extended release 24 hr metoprolol tartrate 25 mg tablet 25 mg PO BID 04/03/25 04/03/25 History sertraline 25 mg tablet 25 mg PO QDAY 04/03/2504/03 History spironolactone 25 mg tablet 25 mg PO QDAY 04/03/25 History (Aldactone) Allergies Allergy/AdvReac Type Severity Reaction Status Date / Time diphenhydramine Allergy Mild ANAPHALATIC Verified 12/30/22 12:41 REACTION Visit Medications Acetaminophen (Acetaminophen 325 Mg Tablet) 650 mg PO Q6H PRN PRN Reason: Fever >101.5 Stop: 05/03/25 08:42 Acetaminophen (Acetaminophen 325 Mg Tablet) 650 mg PO Q6H PRN PRN Reason: PAIN SCALE 1-3 (mild Stop: 05/03/25 08:42 Hydrocodone Bitart/Acetaminophen (Hydrocodone/Apap 5/325 Tablet) 1 tab PO Q6HR PRN PRN Reason: PAIN SCALE 4-6(MODERATE) Stop: 04/08/25 13:15 Last Admin: 04/03/25 13:51 Dose: 1 tab Alprazolam (Alprazolam 0.25 Mg Tablet) 0.5 mg PO BID PRN PRN Reason: anxiety Stop: 04/08/25 13:23 Aspirin (Aspirin Ec 81 Mg Tabec) 81 mg PO QDAY REPLACED BY [facility] Stop: 05/04/25 08:59 Baclofen (Baclofen 10 Mg Tablet) 10 mg PO QDAY CAROL Stop: 05/04/25 08:59 Escitalopram Oxalate (Escitalopram Oxalate 10 Mg Tablet) 10 mg PO QDAY REPLACED BY [facility] Stop: 05/04/25 08:59 Heparin Sodium/Dextrose (Heparin In D5w Ivpb) 25,000 unit in 250 mls @ 10 mls/hr IV .Q24H CAROL; Protocol Stop: 04/17/25 12:44 Last Admin: 04/03/25 13:59 Dose: 11.603 units/kg/hr, 10 mls/hr Magnesium Sulfate (Magnesium Sulfate Ivpb) 2 gm in 50 mls @ 25 mls/hr IV X1 ONE Stop: 04/03/25 15:59 Lidocaine (Lidocaine 5% 1 Patch) 1 patch TOP UD PRN PRN Reason: Back pain Stop: 05/03/25 13:16 Losartan Potassium (Losartan Potassium 25 Mg Tablet) 25 mg PO QDAY REPLACED BY [facility] Stop: 05/03/25 13:29 Metoprolol Tartrate (Metoprolol Tartrate 25 Mg Tablet) 25 mg PO BID REPLACED BY [facility] Stop: 05/03/25 13:29 Pantoprazole Sodium (Pantoprazole Inj 40 Mg Vial) 40 mg IVP QDAY REPLACED BY [facility] Stop: 05/03/25 08:59 Last Admin: 04/03/25 11:22 Dose: 40 mg Sennosides (Senna Tablet) 1 tab PO QDAY PRN; Protocol PRN Reason: constipation Stop: 05/03/25 08:42 Sertraline HCl (Sertraline Hcl 25 Mg Tablet) 25 mg PO QDAY REPLACED BY [facility] Stop: 05/03/25 13:29 Last Admin: 04/03/25 13:59 Dose: 25 mg Discontinued Medications Hydrocodone Bitart/Acetaminophen (Hydrocodone/Apap 5/325 Tablet) 1 tab PO Q4HR PRN PRN Reason: PAIN SCALE 4-6 (Moderate Stop: 04/08/25 08:42 Alprazolam (Alprazolam 0.25 Mg Tablet) 0.5 mg PO X1 ONE Stop: 04/03/25 03:37 Last Admin: 04/03/25 04:40 Dose: 0.5 mg Aspirin (Aspirin 325 Mg Tablet) 325 mg PO X1 ONE Stop: 04/03/25 08:26 Last Admin: 04/03/25 14:25 Dose: Not Given Aspirin (Aspirin 325 Mg Tablet) 325 mg PO NOW ONE Stop: 04/03/25 14:27 Heparin Sodium (Porcine) (Heparin Sod Inj 5000 Unit/Ml Vial) 4,000 unit IV X1 ONE; Protocol Stop: 04/03/25 14:01 Magnesium Sulfate (Magnesium Sulfate Ivpb) 4 gm in 50 mls @ 12.5 mls/hr IV X1 ONE Stop: 04/03/25 11:37 Last Admin: 04/03/25 07:59 Dose: 12.5 mls/hr Ondansetron HCl (Ondansetron Inj 2 Mg/Ml Inj 2 Ml) 4 mg IVP Q6H PRN; Protocol PRN Reason: NAUSEA OR VOMITING Stop: 05/03/25 08:42 Potassium Chloride (Potassium Chloride 20 Meq Tabcr) 40 meq PO X1 ONE Stop: 04/03/25 07:39 Last Admin: 04/03/25 07:59 Dose: 40 meq Assessment & Plan Plan 39F with history of DM, depression, herniated disc, and meth use presents for dizziness. Initial troponin elevated at 3.041. EKG shows normal sinus rhythm at 72 with left axis deviation, no ectopy. Q waves in V1 and V2 as well as questionable Q waves in the inferior leads. Cardiology to follow for NSTEMI #NSTEMI type I vs Type II #LV thrombus per echocardiogram #History of methamphetamine use Patient presented with mild chest discomfort with left arm pain x 1 day ago Elevated trop at 3.041 in the ER. EKG NSR, with questionable Q waves in the inferior leads. Prolonged QTc. In the ED, patient received aspirin 300 mg x 1, heparin bolus. Patient was taking home meds as metoprolol succinate 25 twice daily, losartan 25 mg once daily, Bumex 2 mg once daily and spironolactone 25 mg once daily - Cardiology consult, appreciate recs - Tele monitoring, routine EKG ?Avoid QTc prolonging agents - CA echo concerning for LV thrombus - Start aspirin 325mg x 1 - Start Aspirin 81mg PO QD, Heparin 63743 units for ACS protocol ? Nitroglycerin as needed for chest pain ?Follow-up with labs and coagulation panel ?N.p.o. after midnight for possible cardiac catheterization ? Monitor for chest pain ?Resumed anxiety medications ? Resume metoprolol tartrate 25 mg twice daily, losartan 25 mg once daily - Supplemental O2 as needed #Hypomagnesemia -Magnesium at 1.2 - Repleted 6 g mag x 1 - Keep magnesium above 2 and potassium above 4 #Elevated liver enzymes #Elevated total bilirubin -Patient has a history of substance use disorder. - pending hepatitis panel and liver ultrasound #Subclinical hypothyroidism -TSH 4.11, free T4 0.83 ? Outpatient follow-up ? Thyroid functions to be repeated in next 4 to 6 weeks #Depression - Continue Lexapro 10mg PO QD - Continue Zolofe 25mg PO QD #Anxiety - Continue Xanax 0.5mg BID PRN #herniated disc #Chronic lower back pain on opioids -U tox was positive for opiates. - Continue Baclofen 10mg PO QD - Tylenol PRN ? Continue [place] as needed for pain - Lidocaine patch PRN #[id number] type II diabetes - Insulin sliding scale with hypoglycemia protocol ? Accu-Cheks ?Follow-up on A1c - diabetes education #Substance use disorder UDS positive for opiate and THC - [employer] [place] on substance use disorder Dispo: Telemetry. Admitted for workup of NSTEMI type I. DVT prophylaxis: Heparin drip for ACS GI prophylaxis: Protonix 40 mg IV daily Diet: Cardiac diet, n.p.o. after midnight Lines: Peripheral IV Code status: Full code Case discussed with my senior resident Dr. Castellanos Case discussed with my attending Dr. Lily Kaiser DO PGY 1 Attending Provider Attestation/Addendum Grace Carlton DO, attest that I was physically present for the lorenzo portions of the service and evaluated the patient with the resident and I reviewed and discussed the case with the resident and agree with the resident's findings and plans of care as documented above Patient is a 39-year-old female with past medical history of type 2 diabetes, unknown cardiomyopathy, herniated disc, chronic meth use, depression and anxiety who presented to the ED due to complaint of intermittent chest pain and right arm pain. Patient states that the pain began on Friday, about 1 week ago, with which she associates with shortness of breath. She states that she was here in the ED about 2 days ago due to pain and subsequently discharged home. Patient takes [place] at home for her chronic back pain. She recently saw a new PCP outpatient as well. Patient had been told not to use any NSAIDs including aspirin for her back pain due to history of CHF. Patient states that the pain is pressure-like at times and worse when she sits up. She also endorses having shocking electric pain down her left arm which causes her to twitch as well. Patient states that she stopped using drugs about 2 to 3 weeks ago. She has history of CHF, but has not had any further studies. She was recently seen in [place] as well. She states that she has strong family history of cardiac illness with family members including her father, mother, sister and brother suffering from cardiac illness around her 40s. In the ED, patient was noted to have a troponin of 3. She does not have any active chest pain at time of evaluation. However, patient does appear very anxious and complains of her lower back pain. Cardiology was consulted in the ED due to concern for NSTEMI. Patient has been started on heparin drip and recommended to start on aspirin. However patient reported that she was not recommended to take aspirin. I discussed this with her primary doctor who states that she was only told not to take NSAIDs. Will obtain echocardiogram and follow-up with cardiology recommendations. Troponins seem to have peaked, no need to further trend. Will admit patient to telemetry for further workup and medical management of NSTEMI. Patient has been placed n.p.o. after midnight in the event that cardiology may want for patient to undergo cardiac cath.
--- NOTE | 2025-04-03 15:39 | XR_ITS ---
Examination: Abdomen sonogram, Limited Date and time of exam: April 03, 2025, 1621 hrs. Indications: Elevated liver function tests on laboratory examination today. Technique: Real-time olsen scale transabdominal sonographic images of the upper abdomen obtained. Findings: Normal gallbladder. Normal common bile duct 0.28 cm. Pancreatic head 2.6 cm. Liver 17 cm no liver lesions. Normal hepatopedal portal venous flow. Patent IVC. Impression: Normal gallbladder. Mild hepatomegaly no focal liver lesions
[2025-04-03] MEDS: Magnesium Sulfate 2 GM Ivpb 2 GM/50 ML BAG IV (15:41)
[2025-04-03 15:53] LABS: Troponin I 3.094 ng/mL (0.0-0.045)
[2025-04-03] MEDS: SPIRONOLACTONE 25 MG TABLET PO (16:53)
[2025-04-03] MEDS: BUMETANIDE INJ 0.25 MG/ML VIAL 4 ML 2 MG IVP (16:54)
--- NOTE | 2025-04-03 18:55 | ESCONSULT_ITS ---
<Statement entered by Vlad Arauz MD - 04/04/25 13:16> I personally examined this patient evaluated the patient with PGY 2 Dr. Luis Angel Galeano patient appears to have history of methamphetamine use for several years dilated cardiomyopathy ejection fraction only 15% came to the hospital with anxiety and atypical chest discomfort mostly shortness of breath appears to be in HFrEF with severe orthopnea echo showed severe LV dysfunction patient has had troponin elevation but appears to be type II troponin due to heart failure and acute decompensation I do not see need for cardiac catheterization as appearance of echo is highly suspicious of nonischemic cardiomyopathy due to possibly methamphetamine use. Guideline directed medical management including ARB to be continued and recommend spironolactone in addition to loop diuretic as well and a low-dose beta-yamile as tolerated metoprolol succinate. Evaluate the patient with PGY 2 agree with the treatment plan recommendation as documented HPI Data of Consult Requesting Physician: Grace Chau DO Admitting Provider: Grace Chau DO Attending Provider: Grace Chau DO Primary Care Provider: Physician No Primary/Family Consult Narrative Reason for consult: For suspected ACS in the setting of elevated troponins History of present illness: Patient appears to be extremely anxious and emotional. A 39-year-old female with significant past medical history of CHF, diabetes, hypertension, chronic smoker, chronic methamphetamine abuse presented to the hospital with chief complaints of chest pain and shortness of breath since 1 week. She lives in [place] but as she is feeling sick came to [place] to stay with her mother, nonbiological per patient. Endorsed that she had chest pain and tingling in the left arm with shocklike sensation for which she came to the ED and was discharged on gabapentin few days ago before the day of admission. Even after getting discharged to home, noted chest discomfort and shocklike sensation in left upper arm and had difficulty in doing her routine daily activities due to shortness of breath. Endorsed that she took a dose of Bumex 2 mg which is her nonbiological mother's medication. Endorsed that she had significant orthopnea and is not able to lie down in supine position. Denies radiation of chest pain, fever, nausea, vomiting, abdominal discomfort. Denies IV drug abuse ED course: - Vitals at the time of admission are stable - Labs at the time of admission significant for microcytosis and hypochromia, sodium 133, magnesium 1.2, total bilirubin 1.4, AST 414, ALT 417, troponin 3.041, TSH 4.11 - Urine analysis showed turbid urine with 1+ proteinuria, 18 squamous epithelial cells - Urine toxicology tested positive for opiates and marijuana - EKG at the time of admission is significant for normal sinus rhythm with poor R wave progression without any ST-T wave changes - Chest x-ray showed no infiltrates with enlarged cardiac contour Past medical history: Diagnosed with CHF, EF around 20% 4 years ago, diabetes on oral medication, hypertension Past surgical history, right arthroscopic knee surgery, 3 section, tooth extraction Social history: Lives with her boyfriend in [place]. Methamphetamine abuse, smokes for almost 20 years, chronic smoker, 2 packs/day since 20 years, smokes marijuana every day. Stopped all the drug abuse since 2 weeks Cardiology is consulted in view of elevated troponins and suspected ACS cc:: cc: Grace Chau DO Review of Systems Review of Systems Systems Reviewed: All systems reviewed, normal except as documented Exam Vital Signs Temp Pulse Resp BP Pulse Ox O2 Del Method 97.2 F 70 14 126/99 H 93 L Room Air 04/03/25 16:00 04/03/25 16:54 04/03/25 16:00 04/03/25 16:54 04/03/25 16:00 04/03/25 16:00 Narrative Exam General: Awake. HEENT: Normocephalic, atraumatic, mucous membranes moist. Heart: Regular rate and rhythm, no murmurs. JVD upto ear lobe Lungs: Clear to auscultation with no wheezing or crackles. Abdomen: Soft, nondistended, nontender, positive bowel sounds. ?No guarding or rebound tenderness. Neurologic: Alert and oriented x3, no gross neurological deficit, and patient able to move all 4 extremities. Extremities: Bilateral 2+ pitting pedal edema Skin: No rash or ecchymoses. Results Labs 04/03/25 05:25 04/03/25 05:25 Labs: Short CBC 04/03/25 Range/Units 05:25 WBC 9.0 (3.6-11.0) Thou/mm3 Hgb 14.0 (12.0-16.0) g/dL Hct 43.7 (36.0-46.0) % Plt Count 241 (140-440) Thou/mm3 BMP 04/03/25 05:25 Sodium 133 L Potassium 4.0 Chloride 99 Carbon Dioxide 22.4 BUN 11 Creatinine 0.9 Glucose 97 Calcium 8.3 Cardiac Enzymes 04/03/25 04/03/25 04/03/25 Range/Units 05:25 06:50 12:45 Troponin I 3.041 H* 2.814 H* D 2.984 H* (0.0-0.045) ng/mL 04/03/25 Range/Units 14:53 Troponin I 3.094 H* (0.0-0.045) ng/mL Liver Function 04/03/25 Range/Units 12:45 Total Bilirubin 1.4 H (0.3-1.2) mg/dL Direct Bilirubin 0.7 H (0.0-0.3) mg/dL AST 414 H (0-34) U/L ALT 417 H (10-49) U/L Alkaline Phosphatase 167 H (46-116) U/L Albumin 3.3 L (3.5-5.0) gm/dL Urine 04/03/25 Range/Units 04:36 Urine Color Yellow (Lt Yel-Yel) Urine Clarity Turbid A (Clear/Hazy) Urine pH 6.0 (5.0-7.0) Ur Specific [place] 1.012 (1.001-1.035) Urine Protein 1+ A (Neg - Trace) Urine Glucose (UA) Negative (Negative) Quality Measures Quality Measures VTE therapy (Heparin drip) Medications Home Medications and Allergies Home Medications ?Medication ?Instructions ?Recorded ?Confirmed ?Type acetaminophen 500 mg tablet 500 mg PO .4-6 PRN pain 04/03/25 History alprazolam 0.5 mg tablet (Xanax) 0.5 mg PO BID PRN anx iety 04/03/25 04/03/25 History baclofen 10 mg tablet 10 mg PO BID PRN muscle spas m 04/03/25 04/03/25 History bumetanide 2 mg tablet 2 mg PO BID 04/03/25 5 History cephalexin 500 mg capsule 500 mg PO BID 04/03/2504/03 History escitalopram oxalate 10 mg tablet 10 mg PO QDAY 04/03/25 History losartan 25 mg tablet 25 mg PO QDAY 04/03/2504/03 History metformin 500 mg tablet 500 mg PO QDAY 04/03/25 07/ History metoprolol succinate 25 mg 25 mg PO BID 04/03/2504/03 History tablet,extended release 24 hr metoprolol tartrate 25 mg tablet 25 mg PO BID 04/03/25 04/03/25 History sertraline 25 mg tablet 25 mg PO QDAY 04/03/2504/03 History spironolactone 25 mg tablet 25 mg PO QDAY 04/03/25 History (Aldactone) Allergies Allergy/AdvReac Type Severity Reaction Status Date / Time diphenhydramine Allergy Mild ANAPHALATIC Verified 12/30/22 12:41 REACTION Visit Medications Acetaminophen (Acetaminophen 325 Mg Tablet) 650 mg PO Q6H PRN PRN Reason: Fever >101.5 Stop: 05/03/25 08:42 Acetaminophen (Acetaminophen 325 Mg Tablet) 650 mg PO Q6H PRN PRN Reason: PAIN SCALE 1-3 (mild Stop: 05/03/25 08:42 Hydrocodone Bitart/Acetaminophen (Hydrocodone/Apap 5/325 Tablet) 1 tab PO Q6HR PRN PRN Reason: PAIN SCALE 4-6(MODERATE) Stop: 04/08/25 13:15 Last Admin: 04/03/25 13:51 Dose: 1 tab Alprazolam (Alprazolam 0.25 Mg Tablet) 0.5 mg PO BID PRN PRN Reason: anxiety Stop: 04/08/25 13:23 Aspirin (Aspirin Ec 81 Mg Tabec) 81 mg PO QDAY [facility] Stop: 05/04/25 08:59 Baclofen (Baclofen 10 Mg Tablet) 10 mg PO QDAY [facility] Stop: 05/04/25 08:59 Bumetanide (Bumetanide Inj 0.25 Mg/Ml Vial 4 Ml) 2 mg IVP QDAY [facility] Stop: 05/03/25 16:14 Last Admin: 04/03/25 16:54 Dose: 2 mg Dextrose (Dextrose 50%-Water Inj 50 Ml Syringe) 25 ml IV Q15MIN PRN PRN Reason: BG 50-70 responsive npo pt Stop: 05/03/25 15:19 Dextrose (Dextrose 50%-Water Inj 50 Ml Syringe) 50 ml IV Q15MIN PRN PRN Reason: BG <50 OR BG <70 & pt unresponsive Stop: 05/03/25 15:19 Escitalopram Oxalate (Escitalopram Oxalate 10 Mg Tablet) 10 mg PO QDAY [facility] Stop: 05/04/25 08:59 Glucagon (Glucagon Inj 1 Mg Vial) 1 mg IM Q15MIN PRN PRN Reason: BG <70, and no IV access Heparin Sodium/Dextrose (Heparin In D5w Ivpb) 25,000 unit in 250 mls @ 10 mls/hr IV .Q24H [facility]; Protocol Stop: 04/17/25 12:44 Last Admin: 04/03/25 13:59 Dose: 11.603 units/kg/hr, 10 mls/hr Insulin Human Lispro (Insulin Lispro (Admelog) 1 Unit/0.01 Ml Unit) 0 unit SC AC [facility]; Protocol Stop: 05/03/25 16:59 Last Admin: 04/03/25 17:02 Dose: Not Given Lidocaine (Lidocaine 5% 1 Patch) 1 patch TOP UD PRN PRN Reason: Back pain Stop: 05/03/25 13:16 Metoprolol Tartrate (Metoprolol Tartrate 25 Mg Tablet) 25 mg PO BID [facility] Stop: 05/03/25 13:29 Last Admin: 04/03/25 14:34 Dose: 25 mg Nitroglycerin (Nitroglycerin 0.4 Mg Subl Btl #25) 0.4 mg SL Q5MIN PRN PRN Reason: CHEST PAIN Ondansetron HCl (Ondansetron Inj 2 Mg/Ml Inj 2 Ml) 4 mg IVP Q8HR PRN; Protocol PRN Reason: NAUSEA OR VOMITING Stop: 05/03/25 18:44 Pantoprazole Sodium (Pantoprazole Inj 40 Mg Vial) 40 mg IVP QDAY [facility] Stop: 05/03/25 08:59 Last Admin: 04/03/25 11:22 Dose: 40 mg Sennosides (Senna Tablet) 1 tab PO QDAY PRN; Protocol PRN Reason: constipation Stop: 05/03/25 08:42 Sertraline HCl (Sertraline Hcl 25 Mg Tablet) 25 mg PO QDAY [facility] Stop: 05/03/25 13:29 Last Admin: 04/03/25 14:34 Dose: 25 mg Spironolactone (Spironolactone 25 Mg Tablet) 25 mg PO QDAY [facility] Stop: 05/03/25 16:14 Last Admin: 04/03/25 16:53 Dose: 25 mg Discontinued Medications Hydrocodone Bitart/Acetaminophen (Hydrocodone/Apap 5/325 Tablet) 1 tab PO Q4HR PRN PRN Reason: PAIN SCALE 4-6 (Moderate Stop: 04/08/25 08:42 Alprazolam (Alprazolam 0.25 Mg Tablet) 0.5 mg PO X1 ONE Stop: 04/03/25 03:37 Last Admin: 04/03/25 04:40 Dose: 0.5 mg Aspirin (Aspirin 325 Mg Tablet) 325 mg PO X1 ONE Stop: 04/03/25 08:26 Last Admin: 04/03/25 14:25 Dose: Not Given Aspirin (Aspirin 325 Mg Tablet) 325 mg PO NOW ONE Stop: 04/03/25 14:27 Last Admin: 04/03/25 15:42 Dose: 325 mg Heparin Sodium (Porcine) (Heparin Sod Inj 5000 Unit/Ml Vial) 4,000 unit IV X1 ONE; Protocol Stop: 04/03/25 14:01 Last Admin: 04/03/25 14:35 Dose: 4,000 unit Magnesium Sulfate (Magnesium Sulfate Ivpb) 4 gm in 50 mls @ 12.5 mls/hr IV X1 ONE Stop: 04/03/25 11:37 Last Admin: 04/03/25 07:59 Dose: 12.5 mls/hr Magnesium Sulfate (Magnesium Sulfate Ivpb) 2 gm in 50 mls @ 25 mls/hr IV X1 ONE Stop: 04/03/25 15:59 Last Admin: 04/03/25 15:41 Dose: 25 mls/hr Losartan Potassium (Losartan Potassium 25 Mg Tablet) 25 mg PO QDAY [facility] Stop: 05/03/25 13:29 Last Admin: 04/03/25 14:34 Dose: 25 mg Ondansetron HCl (Ondansetron Inj 2 Mg/Ml Inj 2 Ml) 4 mg IVP Q6H PRN; Protocol PRN Reason: NAUSEA OR VOMITING Stop: 05/03/25 08:42 Pantoprazole Sodium (Pantoprazole Inj 40 Mg Vial) 40 mg IVP X1 ONE Stop: 04/03/25 16:03 Last Admin: 04/03/25 16:51 Dose: 40 mg Potassium Chloride (Potassium Chloride 20 Meq Tabcr) 40 meq PO X1 ONE Stop: 04/03/25 07:39 Last Admin: 04/03/25 07:59 Dose: 40 meq Assessment & Plan Plan A 39-year-old female with significant past medical history of CHF, diabetes, hypertension, chronic smoker, chronic methamphetamine abuse presented to the hospital with chief complaints of chest pain and shortness of breath since 1 week. Cardiology is consulted in view of elevated troponins and suspected ACS # Dilated cardiomyopathy, likely nonischemic # HFrEF, 15% # LV thrombus # 2/2 Methamphetamine abuse # Poor medication compliance - Endorsed that she had chest pain and tingling in the left arm with shocklike sensation for which she came to the ED and was discharged on gabapentin few days ago before the day of admission. - After getting discharged to home, noted chest discomfort and shocklike sensation in left upper arm and had difficulty in doing her routine daily activities due to shortness of breath. - Endorsed that she took a dose of Bumex 2 mg which is her nonbiological mother's medication. Endorsed that she had significant orthopnea and is not able to lie down in supine position. - Denies radiation of chest pain, fever, nausea, vomiting, abdominal discomfort. Denies IV drug abuse - Vitals at the time of admission are stable - Labs at the time of admission significant for microcytosis and hypochromia, sodium 133, magnesium 1.2, total bilirubin 1.4, AST 414, ALT 417, troponin 3.041, TSH 4.11 - Urine analysis showed turbid urine with 1+ proteinuria, 18 squamous epithelial cells - Urine toxicology tested positive for opiates and marijuana - EKG at the time of admission is significant for normal sinus rhythm with poor R wave progression without any ST-T wave changes - Chest x-ray showed no infiltrates with enlarged cardiac contour - Echo showed dilated nonischemic cardiomyopathy with severe global hypokinesis ejection fraction of 15% with evidence of left ventricular apical mural thrombus, 2 cm x 1 cm appears to be chronic with echogenic appearance. The RA cavity size is moderately increased. Mild mitral regurgitation due to dilated mitral annulus. Plan - Recommended to continue heparin drip for now, will transition to oral anticoagulation after discussing with the patient - Started on Bumex 2 mg IV daily and spironolactone 25 Mg p.o. daily for now, will titrate the dose based on patient's clinical condition and how she tolerates the medication - Started on metoprolol tartrate 25 Mg p.o. 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 Patient found to have poor prognosis depending upon her clinical condition # Elevated troponins, NSTEMI, likely type II # Demand ischemia - Troponins at the time of admission is 3.041, downtrended to 2.8 - EKG did not show any evidence of ST T wave changes Plan - No need of pending troponins, as patient less likely to have ACS - Can continue aspirin 81 Mg p.o. daily for now but less likely to have ACS - No cardiac cath for now #Hypomagnesemia #Elevated liver enzymes #Elevated total bilirubin #Subclinical hypothyroidism #Depression #Anxiety #herniated disc #Chronic lower back pain on opioids #[id number] type II diabetes #Substance use disorder Rest of the medical conditions to be treated as per primary team Thank you for allowing us to involved in the care of the patient Patient plan of care was discussed with the coater brake linings, Dr. Davonte Galeano, PGY2
[2025-04-03 20:53] LABS: Partial Thromboplastin Time 137.5 Seconds (22.0-36.0)
[2025-04-03 21:53] LABS: Hepatitis A Antibody IgM Non Reactive (Non React); Hepatitis B Core Antibody IgM Non Reactive (Non React); Hepatitis B Surface Antigen Non Reactive (Non React); Hepatitis C Antibody Non Reactive (Non React)
[2025-04-04] VITALS (10 sets, daily range): BP systolic 100–124; BP diastolic 71–92; PULSE 55–78; RESP 12–94; TEMP 35.9–36.2; O2SAT 91–95; BMI 32.7
[2025-04-04] MEDS: HYDROcodone/APAP 5/325 TABLET 1 TAB PO ×3 (03:34→16:19)
[2025-04-04 04:25] LABS: Basophils # (Auto) 0.1 Thou/mm3 (0.0-0.2); Basophils % (Auto) 1 % (0-2.5); Eosinophils # (Auto) 0.1 Thou/mm3 (0.0-0.5); Eosinophils % (Auto) 2 % (0-10); Hematocrit 45.0 % (36.0-46.0); Hemoglobin 13.5 g/dL (12.0-16.0); Immature Granulocytes Auto 0.04 Thou/mm3 (0.00-0.00); Lymphocytes # (Auto) 2.7 Thou/mm3 (1.0-4.8); Lymphocytes % (Auto) 38 % (10-50); Mean Corpuscular HGB Conc 30.0 g/dl (31.0-37.0); Mean Corpuscular Hemoglobin 24.6 pg (25.0-35.0); Mean Corpuscular Volume 82 fL (80-100); Monocytes # (Auto) 0.7 Thou/mm3 (0.0-0.8); Monocytes % (Auto) 10 % (0-12); Neutrophils # (Auto) 3.5 Thou/mm3 (1.8-7.7); Neutrophils % (Auto) 49 % (37-80); Nucleated Red Blood Cell # 0.00 Thou/mm3 (0.00-0.00); Nucleated Red Blood Cell % 0 /100 WBC (0); Platelet Count 236 Thou/mm3 (140-440); RDW Standard Deviation 51.4 fL (36.4-46.3); Red Blood Count 5.48 Miln/mm3 (4.00-5.20); White Blood Count 7.2 Thou/mm3 (3.6-11.0)
[2025-04-04 04:33] LABS: INR 1.5 (0.9-1.3); Partial Thromboplastin Time 49.5 Seconds (22.0-36.0); Prothrombin Time 16.3 Seconds (9.0-12.2)
[2025-04-04] MEDS: HEPARIN SOD INJ 5000 UNIT/ML VIAL 2000 UNIT IVP (04:54)
[2025-04-04 04:58] LABS: Glucose Estimated Average 146 mg/dL (80-131); Hemoglobin A1C 6.7 % Hgb (4.8-6.0)
[2025-04-04 04:59] LABS: Alanine Aminotransferase 351 U/L (10-49); Albumin, Serum 3.0 gm/dL (3.5-5.0); Albumin/Globulin Ratio 1.2 (1.2-2.2); Alkaline Phosphatase 173 U/L (46-116); Anion Gap 8 (7-16); Aspartate Amino Transferase 288 U/L (0-34); BUN/Creatinine Ratio 11 Ratio (12-20); Bilirubin,Total 1.0 mg/dL (0.3-1.2); Blood Urea Nitrogen 10 mg/dL (9-23); Calcium 7.9 mg/dL (8.3-10.6); Calcium (Corrected) 8.7 mg/dL (8.5-10.1); Carbon Dioxide 25.0 mMol/L (20.0-31.0); Cardiac Risk Estimate 2.9 RATIO (3.7-5.6); Chloride 104 mMol/L (98-107); Cholesterol 76 mg/dL (132-200); Creatinine (Component) 0.9 mg/dL (0.6-1.3); Estimated Creatinine Clearance 91.6 mL/min (>60); Globulin 2.5 gm/dL (2.3-3.5); Glucose 117 mg/dL (74-106); HDL Cholesterol 26 mg/dL (40-60); LDL Cholesterol,Calculated 32 mg/dL (0-130); Magnesium 1.9 mg/dL (1.6-2.6); Osmolality,Calculated 273 (275-295); Phosphorous 2.3 mg/dL (2.4-5.1); Potassium 4.1 mMol/L (3.4-5.1); Sodium 137 mMol/L (136-145); Total Protein 5.5 gm/dL (5.7-8.2); Triglycerides 89 mg/dL (30-150); eGFR > 60 See Note
[2025-04-04] MEDS: BACLOFEN 10 MG TABLET PO (08:39)
[2025-04-04] MEDS: SPIRONOLACTONE 25 MG TABLET PO (08:39)
[2025-04-04] MEDS: Magnesium Sulfate 4 GM Ivpb 4 GM/50 ML BAG IV (08:40)
[2025-04-04] MEDS: BUMETANIDE INJ 0.25 MG/ML VIAL 4 ML 2 MG IVP (08:40)
[2025-04-04] MEDS: ASPIRIN EC 81 MG TABEC PO (08:40)
[2025-04-04] MEDS: ESCITALOPRAM OXALATE 10 MG TABLET PO (08:40)
[2025-04-04] MEDS: METOPROLOL TARTRATE 25 MG TABLET PO (08:40)
[2025-04-04] MEDS: SOD PHOS ADDITIVE 15 MMOL in SODIUM CHLORIDE 0.9% 250 ML 250 ML 62.5 MMOL IV (08:41)
--- NOTE | 2025-04-04 08:57 | ESPR_ITS ---
<Statement entered by Jakob Castellanos MD - 04/04/25 16:32> Patient was seen and examined at the bedside. No acute overnight events reported. Patient denied any chest pain or shortness of breath. Patient will be continued on Eliquis 5 mg twice daily for a week since cardiology stated that its most likely chronic thrombus. Will continue Bumex 2 mg once daily, spironolactone 25 mg once daily, Metropol succinate 25 mg once daily, losartan 25 mg once daily upon discharge. Will likely bridge heparin drip with Eliquis at 9 PM today. Anticipate discharge tomorrow. Electrolytes were repleted. All labs and orders were reviewed. I discussed and supervised with the human resources intern physician who took care of this patient. I personally saw and examined the patient. I agree with most of the assessment and plan. Disclaimer: Despite multiple revisions, due to the dictation software being used, the document bellow may not be free of grammatical errors including phonetic/typographic errors. However, this does not deter from our commitment to providing health care in the patient's best interest in mind. Plan of care discussed with attending Physician Dr. Kandi Castellanos MD PGY-3 Documentation for date of: 04/04/25 Subjective Subjective Interval history: No overnight events. Evaluated at bedside. Pt refers pain to her back, likely due to her herniated disc, otherwise pt reports doing well. Cardiology has no plan for cardiac cath at this point. Continue aspirin 81mg PO QD per cardiology recommendation. Electrolytes were repleted. Reports last bowel movement was a week ago, encourage a trial of Senna. Cardiology is okay with discharging pt on Eliqus 5mg BID for 1 week only and urges pt to follow up with her Caseworker [employer] [facility] in [place], which she had been seeing. She was also encouraged to follow up with her PCP for goal directed medical therapy. Plan to discharge pt tomorrow morning with Bumex 2mg QD, Spironlactone 25mg QD, Metoprolol succinate 25mg BID, lorsartan 25mg QD. Cardiology recommends Eliquis over Coumadin due to the needs for INR monitoring if pt was to put on Coumadin on discharge. Since pt is from [place] and sees the silk worker in [place], pt was encouraged to follow up with them there for further management upon discharge. Exam Vital Signs Temp Pulse Resp BP Pulse Ox O2 Del Method 96.6 F L 57 L 17 100/78 92 L Room Air 04/04/25 04:00 04/04/25 08:00 04/04/25 06:57 04/04/25 04:00 04/04/25 04:00 04/04/25 04:00 Narrative Exam General: Well appearing, well nourished, in no distress. Oriented x 3, normal mood and affect . Skin: Good turgor, no rash, unusual bruising or prominent lesions Mouth: Mucous membranes moist, no mucosal lesions. Heart: regular rate and rhythm, no murmur or gallop Lungs: Clear to auscultation and percussion. No rales, wheeze, or rhonchi Abdomen: No tenderness, organomegaly, masses, or hernia Extremities: No amputations or deformities, cyanosis, edema or varicosities, peripheral pulses intact, Objective Labs 04/05/25 05:42 04/05/25 05:42 Labs: Laboratory Results - last 24 hr 04/03/25 04/03/25 04/03/25 12:45 14:53 16:18 WBC RBC Hgb Hct MCV MCH MCHC RDW Std Deviation Plt Count Neut % (Auto) Lymph % (Auto) Free[place] % (Auto) Eos % (Auto) Baso % (Auto) Neut # (Auto) Lymph # (Auto) [place] # (Auto) Eos # (Auto) Baso # (Auto) Immature Gran # (Auto) Absolute Nucleated RBC Immature Gran % Nucleated RBC % PT 19.0 H INR 1.8 H APTT 31.0 Sodium Potassium Chloride Carbon Dioxide Anion Gap BUN Creatinine Estim Creat Clear Calc eGFR BUN/Creatinine Ratio Glucose Estimated Ave Glu mg/dL Hemoglobin A1c Calculated Osmolality Calcium Corrected Calcium Phosphorus Magnesium Total Bilirubin 1.4 H Direct Bilirubin 0.7 H AST 414 H ALT 417 H Alkaline Phosphatase 167 H Troponin I 2.984 H* 3.094 H* Total Protein 6.1 Albumin 3.3 L Globulin Albumin/Globulin Ratio Triglycerides Cholesterol LDL Cholesterol, Calc HDL Cholesterol Cholesterol/HDL Ratio Hepatitis A IgM Ab Non Reactive Hep Bs Antigen Non Reactive Hep B Core IgM Ab Non Reactive Hepatitis C Antibody Non Reactive 04/03/25 04/04/25 20:05 04:00 WBC 7.2 RBC 5.48 H Hgb 13.5 Hct 45.0 MCV 82 MCH 24.6 L MCHC 30.0 L RDW Std Deviation 51.4 H Plt Count 236 Neut % (Auto) 49 Lymph % (Auto) 38 Free[place] % (Auto) 10 Eos % (Auto) 2 Baso % (Auto) 1 Neut # (Auto) 3.5 Lymph # (Auto) 2.7 [place] # (Auto) 0.7 Eos # (Auto) 0.1 Baso # (Auto) 0.1 Immature Gran # (Auto) 0.04 H Absolute Nucleated RBC 0.00 Immature Gran % 1 H Nucleated RBC % 0 PT 16.3 H INR 1.5 H APTT 137.5 H* D 49.5 H D Sodium 137 Potassium 4.1 Chloride 104 Carbon Dioxide 25.0 Anion Gap 8 BUN 10 Creatinine 0.9 Estim Creat Clear Calc 91.6 eGFR > 60 BUN/Creatinine Ratio 11 L Glucose [address] Glu mg/dL 146 H Hemoglobin A1c 6.7 H Calculated Osmolality 273 L Calcium 7.9 L Corrected Calcium 8.7 Phosphorus 2.3 L Magnesium 1.9 Total Bilirubin 1.0 Direct Bilirubin AST 288 H ALT 351 H Alkaline Phosphatase 173 H Troponin I Total Protein 5.5 L Albumin 3.0 L Globulin 2.5 Albumin/Globulin Ratio 1.2 Triglycerides 89 Cholesterol 76 L LDL Cholesterol, Calc 32 HDL Cholesterol 26 L Cholesterol/HDL Ratio 2.9 L Hepatitis A IgM Ab Hep Bs Antigen Hep B Core IgM Ab Hepatitis C Antibody Quality Measures Quality Measures VTE therapy (Heparin drip) Assessment & Plan Assessment Current Active Medications: Generic Name Dose Route Start Last Admin Trade Name Freq PRN Reason Stop Dose Admin Acetaminophen 650 mg 04/03/25 08:43 Acetaminophen 325 Mg Tablet PO 05/03/25 08:42 Q6H PRN Fever >101.5 Acetaminophen 650 mg 04/03/25 08:43 Acetaminophen 325 Mg Tablet PO 05/03/25 08:42 Q6H PRN PAIN SCALE 1-3 (mild Hydrocodone Bitart/Acetaminophen 1 tab 04/03/25 13:16 04/04/25 03:34 Hydrocodone/Apap 5/325 Tablet PO 04/08/25 13:15 1 tab Q6HR PRN Administration PAIN SCALE 4-6(MODERATE) Alprazolam 0.5 mg 04/03/25 13:24 Alprazolam 0.25 Mg Tablet PO 04/08/25 13:23 BID PRN anxiety Aspirin 81 mg 04/04/25 09:00 Aspirin Ec 81 Mg Tabec PO 05/04/25 08:59 QDAY CAROL Baclofen 10 mg 04/04/25 09:00 Baclofen 10 Mg Tablet PO 05/04/25 08:59 QDAY [facility] Bumetanide 2 mg 04/03/25 16:15 04/03/25 16:54 Bumetanide Inj 0.25 Mg/Ml Vial 4 Ml IVP 05/03/25 16:14 2 mg QDAY CAROL Administration Dextrose 25 ml 04/03/25 15:20 Dextrose 50%-Water Inj 50 Ml Syringe IV 05/03/25 15:19 Q15MIN PRN BG 50-70 responsive npo pt Dextrose 50 ml 04/03/25 15:20 Dextrose 50%-Water Inj 50 Ml Syringe IV 05/03/25 15:19 Q15MIN PRN BG <50 OR BG <70 & pt unresponsive Escitalopram Oxalate 10 mg 04/04/25 09:00 Escitalopram Oxalate 10 Mg Tablet PO 05/04/25 08:59 QDAY [facility] Glucagon 1 mg 04/03/25 15:20 Glucagon Inj 1 Mg Vial IM Q15MIN PRN BG <70, and no IV access Heparin Sodium/Dextrose 25,000 unit in 250 mls @ 10 mls/hr 04/03/25 12:45 04/04/25 04:43 Heparin In D5w Ivpb IV 04/17/25 12:44 10.603 units/kg/hr .Q24H [facility] 9.138 mls/hr Titration Protocol 11.603 UNITS/KG/HR Magnesium Sulfate 4 gm in 50 mls @ 12.5 mls/hr 04/04/25 07:40 Magnesium Sulfate Ivpb IV 04/04/25 11:39 X1 ONE Sodium Phosphate 15 mmol/ 255 mls @ 62.5 mls/hr 04/04/25 07:41 Sodium Chloride IV 04/04/25 11:45 X1 ONE Insulin Human Lispro 0 unit 04/03/25 17:00 04/04/25 08:11 Insulin Lispro (Admelog) 1 Unit/0.01 Ml Unit SC 05/03/25 16:59 Not Given AC [facility] Protocol Lidocaine 1 patch 04/03/25 13:17 Lidocaine 5% 1 Patch TOP 05/03/25 13:16 UD PRN Back pain Metoprolol Tartrate 25 mg 04/03/25 13:30 04/03/25 20:19 Metoprolol Tartrate 25 Mg Tablet PO 05/03/25 13:29 25 mg BID CAROL Administration Nitroglycerin 0.4 mg 04/03/25 15:38 Nitroglycerin 0.4 Mg Subl Btl #25 SL Q5MIN PRN CHEST PAIN Ondansetron HCl 4 mg 04/03/25 18:45 Ondansetron Inj 2 Mg/Ml Inj 2 Ml IVP 05/03/25 18:44 Q8HR PRN NAUSEA OR VOMITING Protocol Pantoprazole Sodium 40 mg 04/03/25 09:00 04/03/25 11:22 Pantoprazole Inj 40 Mg Vial IVP 05/03/25 08:59 40 mg QDAY CAROL Administration Sennosides 1 tab 04/03/25 08:43 Senna Tablet PO 05/03/25 08:42 QDAY PRN constipation Protocol Sertraline HCl 25 mg 04/03/25 13:30 04/03/25 14:34 Sertraline Hcl 25 Mg Tablet PO 05/03/25 13:29 25 mg QDAY CAROL Administration Spironolactone 25 mg 04/03/25 16:15 04/03/25 16:53 Spironolactone 25 Mg Tablet PO 05/03/25 16:14 25 mg QDAY CAROL Administration Plan 39F with history of DM, depression, herniated disc, and meth use presents for dizziness. Initial troponin elevated at 3.041. EKG shows normal sinus rhythm at 72 with left axis deviation, no ectopy. Q waves in V1 and V2 as well as questionable Q waves in the inferior leads. Cardiology consulted, continue heparin drip, no plan for cardiac cath as of now. Echo shows Left ventricle is dilated measured 5.6 cm with severe global hypokinesis severely depressed left ventricle ejection fraction of 15%. There is evidence of apical mural thrombus 1 cm wide and 2 cm in length along the anteroapical segments. This appears to be chronic thrombus in echogenicity. Cardiology is okay for us to proceed with pt discharge tomorrow morning on Eliquis 5mg BID, Bumex 2mg QD, Spironlactone 25mg QD, Metoprolol succinate 25mg BID, and lorsartan 25mg QD. #NSTEMI type I vs Type II #LV thrombus per echocardiogram #History of methamphetamine use Patient presented with mild chest discomfort with left arm pain x 1 day ago Elevated trop at 3.041 in the ER. EKG NSR, with questionable Q waves in the inferior leads. Prolonged QTc. In the ED, patient received aspirin 300 mg x 1, heparin bolus. Patient was taking home meds as metoprolol succinate 25 twice daily, losartan 25 mg once daily, Bumex 2 mg once daily and spironolactone 25 mg once daily - Cardiology consulted - Continue heparin drip today, will transition to Eliquis 5mg BID tonight - Continue Bumex 2mg QD, Spironlactone 25mg QD, Metoprolol succinate 25mg BID, and lorsartan 25mg QD on discharge - No plan for cardiac cath for now, encouraged pt to follow up with her silk worker in [place]. - Cardiology recommends Eliquis over Coumadin due to the needs for INR monitoring if pt was to put on Coumadin on discharge. Since pt is from [place] and sees the silk worker in [place], pt was encouraged to follow up with them there for further management upon discharge. - Tele monitoring, routine EKG ?Avoid QTc prolonging agents - CA echo concerning for LV thrombus - Start aspirin 325mg x 1 - Start Aspirin 81mg PO QD, Heparin 73732 units for ACS protocol ? Nitroglycerin as needed for chest pain ?Follow-up with labs and coagulation panel ? Monitor for chest pain ?Resumed anxiety medications - Supplemental O2 as needed #HFrEF Echo show left ventricle is dilated measured 5.6 cm with severe global hypokinesis severely depressed left ventricle ejection fraction of 15%. There is evidence of apical mural thrombus 1 cm wide and 2 cm in length along the anteroapical segments. This appears to be chronic thrombus in echogenicity. - Strike I/O - Obtain daily weight - Continue Bumex 2mg IV QD and Spironolactone 2mg PO QD #Hypomagnesemia -Magnesium at 1.2 -> 1.9 - Repleted 6 g mag x 1 - Keep magnesium above 2 and potassium above 4 #Elevated liver enzymes - downtrending #Elevated total bilirubin - resolved #transaminitis -Patient has a history of substance use disorder. - Hepatitis panel negative - Liver ultrasound shows mild hepatomegaly, otherwise unremarkable. #Subclinical hypothyroidism -TSH 4.11, free T4 0.83 ? Outpatient follow-up ? Thyroid functions to be repeated in next 4 to 6 weeks #Depression - Continue Lexapro 10mg PO QD - Continue Zolofe 25mg PO QD #Anxiety - Continue Xanax 0.5mg BID PRN #herniated disc #Chronic lower back pain on opioids -U tox was positive for opiates. - Continue Baclofen 10mg PO QD - Tylenol PRN ? Continue Willard as needed for pain - Lidocaine patch PRN #[id number] type II diabetes - Insulin sliding scale with hypoglycemia protocol ? Accu-Cheks ?A1C 6.7, within range of goal <7% - diabetes education #Substance use disorder UDS positive for opiate and THC - Tele [employer] on substance use disorder Dispo: Telemetry. Plan for Discharge tomorrow morning DVT prophylaxis: Heparin drip for ACS GI prophylaxis: Protonix 40 mg IV daily Diet: Cardiac diet Lines: Peripheral IV Code status: Full code Case discussed with my senior resident Dr. Castellanos Case discussed with my attending Dr. Kandi Kaiser DO PGY 1 Attending Provider Attestation/Addendum Grace Carlton DO, attest that I was physically present for the lorenzo portions of the service and evaluated the patient with the resident and I reviewed and discussed the case with the resident and agree with the resident's findings and plans of care as documented above Patient seen eval this a.m. Patient remains anxious. She is currently on heparin due to left ventricular thrombus, that appears to be chronic otherwise. She denies any active chest pain or shortness of breath. Patient states that she is just very chronic back pain. Will follow-up with cardiology recommendations and switch to Eliquis this evening. She remains on goal- directed medical therapy for her low ejection fraction of 15%. If patient remains stable and hemoglobin remains stable up, anticipate discharge within the next 24 hours.
--- NOTE | 2025-04-04 09:42 | PC.SS ---
Patient Chang Argueta is a Year old female admitted for NSTEMI. SS met with patient at bedside to discuss discharge plan and verify demographic information. Patient reports she lives at home alone in [place]. Patient was visiting her step mother in [place] Patient reports her step mother, Nadia Collins is her surrogate decision maker, [phone]. Patient reports she utilizes a Rollator walker to assist with ambulation. Patient reports she sees a PCP in [place] however at the time does not remember his name. At time of discharge patient will return home. SS inquired about advance directive, patient is not interested at the time. Next of kin, Step motherNadia [phone] Discharge plan: Home
[2025-04-04 12:04] LABS: Partial Thromboplastin Time 59.2 Seconds (22.0-36.0)
--- NOTE | 2025-04-04 14:29 | PC.SS ---
SS follow up note; Patient is on IV heprin. Patient will discharge home when medically cleared.
[2025-04-04 17:36] LABS: Partial Thromboplastin Time 58.5 Seconds (22.0-36.0)
[2025-04-04] MEDS: Heparin/D5w 25K 250 ML Ivpb 25,000 UNIT/250 ML BAG 9.138 UNIT IV (17:41)
--- NOTE | 2025-04-04 18:02 | ESPR_ITS ---
<Statement entered by Vlad Arauz MD - 04/10/25 12:17> I personally examined the patient and reviewed the findings with PGY 2 Dr. Chatman patient is known to have history of polysubstance abuse methamphetamine use cardiomyopathy severe LV dysfunction to the hospital with shortness of predominant heart failure symptoms for 1 week now has troponin elevation with persistent possibly due to acutely decompensated heart failure not any did not have any chest pain or ischemic symptoms. Patient normally is followed by fabric machine operator in [place] recommend he see him as soon as discharge for further evaluation no need for angiogram since he does not have any chest pain troponin elevation clearly appears with type II troponin elevation. Evaluate the patient with resident physician agree with the treatment plan recommendation as documented GDMT for heart failure systolic heart failure will be continued.The patient also has chronic LV thrombus difficult to manage her Coumadin hence Eliquis is appropriate 5 mg twice daily continue diuretic therapy spironolactone will be added to bumetanide continue metoprolol low-dose for beta-yamile as tolerated along with losartan for ARB. Documentation for date of: 04/04/25 Subjective Subjective Interval history: Pt is seen at bedside in telemetry, currently saturating on room air. Denies any shortness of breath unless she is laying flat. Denies chest pain or palpitations. Pt endorses to feeling better, denies acute cardiac symptoms. Pt states she sees a fabric machine operator in [place]. Vitals are stable and labs are reviewed. Pt's initial symptoms are likely due to non ischemic cardiomyopathy in the setting chronic meth use. Pt is aware of her low EF previosuly discussed with her by her fabric machine operator in [place]. The left ventricular apical mural thrombus found on echo is likely chronic, recommend transitioning from heparin drip to eliquis. Pt may not be discharged on warfarin due to pt will need a strict follow up for INR which pt cannot do because she lives in [place]. therefore Pt maybe discharged home with eliquis and GDMT and strictly follow up with her fabric machine operator to decide on anticoagulation. Pt is not a candidate for ICD because pt is in stage lV dysfunction and not a candidate for HOGSHEAD COOPER because there if no evidence of RBBB. Pt is cleared to be discharged from cardiology stand point and to follow up with her fabric machine operator in [place]. Exam Vital Signs Temp Pulse Resp BP Pulse Ox O2 Del Method 96.8 F 55 L 19 111/71 91 L Room Air 04/04/25 16:00 04/04/25 16:00 04/04/25 16:00 04/04/25 16:00 04/04/25 16:00 04/04/25 16:00 Narrative Exam GENERAL: A&Ox3 . Awake, Not in acute distress NEURO: no focal neurological deficits HEENT: Atraumatic, Normocephalic. mucous membranes moist. Eyes open, symmetrical, & clear HEART: Normal Heart Sounds LUNGS: Clear to auscultation with no wheezing or crackles. ABDOMEN: soft, non-distended, non-tender, bowel sounds heard, no guarding or rebound tenderness SKIN: No Rash or ecchymoses EXTREMITIES: trace pitting edema, no tenderness, able to move all 4 extremities, pedal pulses palpated Objective Labs 04/04/25 04:00 04/04/25 04:00 Labs: Laboratory Results - last 24 hr 04/03/25 04/03/25 04/04/25 16:18 20:05 04:00 WBC 7.2 RBC 5.48 H Hgb 13.5 Hct 45.0 MCV 82 MCH 24.6 L MCHC 30.0 L RDW Std Deviation 51.4 H Plt Count 236 Neut % (Auto) 49 Lymph % (Auto) 38 [place] % (Auto) 10 Eos % (Auto) 2 Baso % (Auto) 1 Neut # (Auto) 3.5 Lymph # (Auto) 2.7 [place] # (Auto) 0.7 Eos # (Auto) 0.1 Baso # (Auto) 0.1 Immature Gran # (Auto) 0.04 H Absolute Nucleated RBC 0.00 Immature Gran % 1 H Nucleated RBC % 0 PT 16.3 H INR 1.5 H APTT 137.5 H* D 49.5 H D Sodium 137 Potassium 4.1 Chloride 104 Carbon Dioxide 25.0 Anion Gap 8 BUN 10 Creatinine 0.9 Estim Creat Clear Calc 91.6 eGFR > 60 BUN/Creatinine Ratio 11 L Glucose [address] Glu mg/dL 146 H Hemoglobin A1c 6.7 H Calculated Osmolality 273 L Calcium 7.9 L Corrected Calcium 8.7 Phosphorus 2.3 L Magnesium 1.9 Total Bilirubin 1.0 AST 288 H ALT 351 H Alkaline Phosphatase 173 H Total Protein 5.5 L Albumin 3.0 L Globulin 2.5 Albumin/Globulin Ratio 1.2 Triglycerides 89 Cholesterol 76 L LDL Cholesterol, Calc 32 HDL Cholesterol 26 L Cholesterol/HDL Ratio 2.9 L Hepatitis A IgM Ab Non Reactive Hep Bs Antigen Non Reactive Hep B Core IgM Ab Non Reactive Hepatitis C Antibody Non Reactive 04/04/25 04/04/25 11:16 16:50 WBC RBC Hgb Hct MCV MCH MCHC RDW Std Deviation Plt Count Neut % (Auto) Lymph % (Auto) [place] % (Auto) Eos % (Auto) Baso % (Auto) Neut # (Auto) Lymph # (Auto) [place] # (Auto) Eos # (Auto) Baso # (Auto) Immature Gran # (Auto) Absolute Nucleated RBC Immature Gran % Nucleated RBC % PT INR APTT 59.2 H 58.5 H Sodium Potassium Chloride Carbon Dioxide Anion Gap BUN Creatinine Estim Creat Clear Calc eGFR BUN/Creatinine Ratio Glucose Estimated Ave Glu mg/dL Hemoglobin A1c Calculated Osmolality Calcium Corrected Calcium Phosphorus Magnesium Total Bilirubin AST ALT Alkaline Phosphatase Total Protein Albumin Globulin Albumin/Globulin Ratio Triglycerides Cholesterol LDL Cholesterol, Calc HDL Cholesterol Cholesterol/HDL Ratio Hepatitis A IgM Ab Hep Bs Antigen Hep B Core IgM Ab Hepatitis C Antibody Quality Measures Quality Measures VTE therapy (Heparin drip) Assessment & Plan Assessment Current Active Medications: Generic Name Dose Route Start Last Admin Trade Name Freq PRN Reason Stop Dose Admin Acetaminophen 650 mg 04/03/25 08:43 Acetaminophen 325 Mg Tablet PO 05/03/25 08:42 Q6H PRN Fever >101.5 Acetaminophen 650 mg 04/03/25 08:43 Acetaminophen 325 Mg Tablet PO 05/03/25 08:42 Q6H PRN PAIN SCALE 1-3 (mild Hydrocodone Bitart/Acetaminophen 1 tab 04/03/25 13:16 04/04/25 16:19 Hydrocodone/Apap 5/325 Tablet PO 04/08/25 13:15 1 tab Q6HR PRN Administration PAIN SCALE 4-6(MODERATE) Alprazolam 0.5 mg 04/03/25 13:24 Alprazolam 0.25 Mg Tablet PO 04/08/25 13:23 BID PRN anxiety Apixaban 5 mg 04/04/25 21:00 Apixaban 2.5 Mg Tablet PO 05/04/25 20:59 BID CAROL Aspirin 81 mg 04/04/25 09:00 04/04/25 08:40 Aspirin Ec 81 Mg Tabec PO 05/04/25 08:59 81 mg QDAY CAROL Administration Baclofen 10 mg 04/04/25 09:00 04/04/25 08:39 Baclofen 10 Mg Tablet PO 05/04/25 08:59 10 mg QDAY CAROL Administration Bumetanide 2 mg 04/03/25 16:15 04/04/25 08:40 Bumetanide Inj 0.25 Mg/Ml Vial 4 Ml IVP 05/03/25 16:14 2 mg QDAY CAROL Administration Dextrose 25 ml 04/03/25 15:20 Dextrose 50%-Water Inj 50 Ml Syringe IV 05/03/25 15:19 Q15MIN PRN BG 50-70 responsive npo pt Dextrose 50 ml 04/03/25 15:20 Dextrose 50%-Water Inj 50 Ml Syringe IV 05/03/25 15:19 Q15MIN PRN BG <50 OR BG <70 & pt unresponsive Escitalopram Oxalate 10 mg 04/04/25 09:00 04/04/25 08:40 Escitalopram Oxalate 10 Mg Tablet PO 05/04/25 08:59 10 mg QDAY CAROL Administration Glucagon 1 mg 04/03/25 15:20 Glucagon Inj 1 Mg Vial IM Q15MIN PRN BG <70, and no IV access Heparin Sodium/Dextrose 25,000 unit in 250 mls @ 10 mls/hr 04/03/25 12:45 04/04/25 17:41 Heparin In D5w Ivpb IV 04/04/25 21:00 10.603 units/kg/hr .Q24H CAROL 9.138 mls/hr Administration Protocol 11.603 UNITS/KG/HR Insulin Human Lispro 0 unit 04/03/25 17:00 04/04/25 17:35 Insulin Lispro (Admelog) 1 Unit/0.01 Ml Unit SC 05/03/25 16:59 Not Given [facility] Protocol Lidocaine 1 patch 04/03/25 13:17 Lidocaine 5% 1 Patch TOP 05/03/25 13:16 UD PRN Back pain Losartan Potassium 25 mg 04/05/25 09:00 Losartan Potassium 25 Mg Tablet PO 05/05/25 08:59 QDAY CAROL Metoprolol Succinate 25 mg 04/05/25 09:00 Metoprolol Succinate Xl 25 Mg Tabcr PO 05/05/25 08:59 QDAY CAROL Nitroglycerin 0.4 mg 04/03/25 15:38 Nitroglycerin 0.4 Mg Subl Btl #25 SL Q5MIN PRN CHEST PAIN Ondansetron HCl 4 mg 04/03/25 18:45 Ondansetron Inj 2 Mg/Ml Inj 2 Ml IVP 05/03/25 18:44 Q8HR PRN NAUSEA OR VOMITING Protocol Pantoprazole Sodium 40 mg 04/03/25 09:00 04/04/25 08:38 Pantoprazole Inj 40 Mg Vial IVP 05/03/25 08:59 40 mg QDAY CAROL Administration Sennosides 1 tab 04/03/25 08:43 04/04/25 08:44 Senna Tablet PO 05/03/25 08:42 1 tab QDAY PRN Administration constipation Protocol Sertraline HCl 25 mg 04/03/25 13:30 04/03/25 14:34 Sertraline Hcl 25 Mg Tablet PO 05/03/25 13:29 25 mg QDAY CAROL Administration Spironolactone 25 mg 04/03/25 16:15 04/04/25 08:39 Spironolactone 25 Mg Tablet PO 05/03/25 16:14 25 mg QDAY CAROL Administration Plan Ms. Argueta is a 39-year-old female with significant past medical history of CHF, diabetes, hypertension, chronic smoker, chronic methamphetamine abuse presented to the hospital with chief complaints of chest pain and shortness of breath since 1 week. Cardiology is consulted in view of elevated troponins and suspected ACS # Dilated cardiomyopathy, likely nonischemic # HFrEF, EF 15% # Chronic LV thrombus # 2/2 Methamphetamine abuse # Poor medication compliance - Endorsed that she had chest pain and tingling in the left arm with shocklike sensation for which she came to the ED and was discharged on gabapentin few days ago before the day of admission. - After getting discharged to home, noted chest discomfort and shocklike sensation in left upper arm and had difficulty in doing her routine daily activities due to shortness of breath. - Endorsed that she took a dose of Bumex 2 mg which is her nonbiological mother's medication. Endorsed that she had significant orthopnea and is not able to lie down in supine position. - Denies radiation of chest pain, fever, nausea, vomiting, abdominal discomfort. Denies IV drug abuse - Vitals at the time of admission are stable - Labs at the time of admission significant for microcytosis and hypochromia, sodium 133, magnesium 1.2, total bilirubin 1.4, AST 414, ALT 417, troponin 3.041, TSH 4.11 - Urine analysis showed turbid urine with 1+ proteinuria, 18 squamous epithelial cells - Urine toxicology tested positive for opiates and marijuana - EKG at the time of admission is significant for normal sinus rhythm with poor R wave progression without any ST-T wave changes - Chest x-ray showed no infiltrates with enlarged cardiac contour - Echo showed dilated nonischemic cardiomyopathy with severe global hypokinesis ejection fraction of 15% with evidence of left ventricular apical mural thrombus, 2 cm x 1 cm appears to be chronic with echogenic appearance. The RA cavity size is moderately increased. Mild mitral regurgitation due to dilated mitral annulus. Plan - Recommended to continue heparin drip for now, and transition to oral anticoagulation tomorrow - Started on Bumex 2 mg IV daily and spironolactone 25 Mg p.o. daily for now, will titrate the dose based on patient's clinical condition and how she tolerates the medication - Started on metoprolol tartrate 25 Mg p.o. twice daily as patient does not appear to be in acute heart failure - If tolerates all the above medications, will start on LISA or ARB's - Strict input on output monitoring, fluid and salt restriction - Keep potassium greater than 4 and magnesium greater than 2 - Not a candidate for HOGSHEAD COOPER/ICD. Patient found to have poor prognosis depending upon her clinical condition -Pt maybe discharged home on eliquis and GDMT and follow up with her fabric machine operator in [place] # Elevated troponins, NSTEMI, likely type II # Demand ischemia - Troponins at the time of admission is 3.041, downtrended to 2.8 - EKG did not show any evidence of ST T wave changes Plan - No need of pending troponins, as patient less likely to have ACS - Can continue aspirin 81 Mg p.o. daily for now but less likely to have ACS - No cardiac cath for now #Hypomagnesemia #Elevated liver enzymes #Elevated total bilirubin #Subclinical hypothyroidism #Depression #Anxiety #herniated disc #Chronic lower back pain on opioids #[id number] type II diabetes #Substance use disorder Management as per primary team Thank you for allowing us to involved in the care of the patient Assessment and plan discussed with my attending physician Dr. Davonte Chatman (PGY-2)- Internal medicine resident
[2025-04-04] MEDS: ONDANSETRON INJ 2 MG/ML INJ 2 ML 4 MG IVP (19:15)
[2025-04-04] MEDS: APIXABAN 2.5 MG TABLET 5 MG PO (20:50)
[2025-04-04 23:34] LABS: Partial Thromboplastin Time 27.7 Seconds (22.0-36.0)
[2025-04-05] VITALS (8 sets, daily range): BP systolic 117–135; BP diastolic 73–110; PULSE 54–84; RESP 12–96; TEMP 36–36.2; O2SAT 93–98; BMI 33.3
[2025-04-05 06:13] LABS: Basophils # (Auto) 0.1 Thou/mm3 (0.0-0.2); Basophils % (Auto) 1 % (0-2.5); Eosinophils # (Auto) 0.1 Thou/mm3 (0.0-0.5); Eosinophils % (Auto) 2 % (0-10); Hematocrit 41.8 % (36.0-46.0); Hemoglobin 13.1 g/dL (12.0-16.0); Immature Granulocytes Auto 0.02 Thou/mm3 (0.00-0.00); Lymphocytes # (Auto) 2.4 Thou/mm3 (1.0-4.8); Lymphocytes % (Auto) 38 % (10-50); Mean Corpuscular HGB Conc 31.3 g/dl (31.0-37.0); Mean Corpuscular Hemoglobin 24.6 pg (25.0-35.0); Mean Corpuscular Volume 79 fL (80-100); Monocytes # (Auto) 0.6 Thou/mm3 (0.0-0.8); Monocytes % (Auto) 9 % (0-12); Neutrophils # (Auto) 3.1 Thou/mm3 (1.8-7.7); Neutrophils % (Auto) 50 % (37-80); Nucleated Red Blood Cell # 0.00 Thou/mm3 (0.00-0.00); Nucleated Red Blood Cell % 0 /100 WBC (0); Platelet Count 206 Thou/mm3 (140-440); RDW Standard Deviation 49.9 fL (36.4-46.3); Red Blood Count 5.32 Miln/mm3 (4.00-5.20); White Blood Count 6.3 Thou/mm3 (3.6-11.0)
[2025-04-05 06:43] LABS: Anion Gap 8 (7-16); BUN/Creatinine Ratio 14 Ratio (12-20); Blood Urea Nitrogen 13 mg/dL (9-23); Calcium 8.1 mg/dL (8.3-10.6); Carbon Dioxide 28.8 mMol/L (20.0-31.0); Chloride 100 mMol/L (98-107); Creatinine (Component) 0.9 mg/dL (0.6-1.3); Estimated Creatinine Clearance 92.5 mL/min (>60); Glucose 92 mg/dL (74-106); Magnesium 1.6 mg/dL (1.6-2.6); Osmolality,Calculated 273 (275-295); Phosphorous 3.2 mg/dL (2.4-5.1); Potassium 4.4 mMol/L (3.4-5.1); Sodium 137 mMol/L (136-145); eGFR > 60 See Note
[2025-04-05] MEDS: Magnesium Sulfate 4 GM Ivpb 4 GM/50 ML BAG IV (07:41)
[2025-04-05] MEDS: ASPIRIN EC 81 MG TABEC PO (08:32)
[2025-04-05] MEDS: BUMETANIDE INJ 0.25 MG/ML VIAL 4 ML 2 MG IVP (08:32)
[2025-04-05] MEDS: BACLOFEN 10 MG TABLET PO (08:32)
[2025-04-05] MEDS: SERTRALINE HCL 25 MG TABLET PO (08:32)
[2025-04-05] MEDS: APIXABAN 2.5 MG TABLET 5 MG PO (08:32)
[2025-04-05] MEDS: METOPROLOL SUCCINATE XL 25 MG TABCR PO (08:32)
[2025-04-05] MEDS: ESCITALOPRAM OXALATE 10 MG TABLET PO (08:32)
--- NOTE | 2025-04-05 08:42 | ESDS_ITS ---
<Statement entered by Grace Chau DO - 04/05/25 16:39> I, Grace Chau DO, attest that I was physically present for the lorenzo portions of the service and evaluated the patient with the resident and I reviewed and discussed the case with the resident and agree with the resident's findings and plans of care as documented above Patient to continue Eliquis for 1 month for left ventricular thrombus that appears to be chronic. Patient will need to follow-up with her gallery or museum guide in [place]. Discussed with patient risks of bleeding and fall precautions regarding anticoagulation. Patient verbalized understanding. Will continue with patient's home medications/goal-directed medical therapy for dilated cardiomyopathy likely secondary to previous drug use. Patient is otherwise stable to be discharged home. She is euvolemic and resting comfortably on room air. <Statement entered by Jakob Castellanos MD - 04/05/25 14:36> I discussed and supervised with the internet specialist physician who took care of this patient. I personally saw and examined the patient. I agree with most of the assessment and plan. Disclaimer: Despite multiple revisions, due to the dictation software being used, the document bellow may not be free of grammatical errors including phonetic/typographic errors. However, this does not deter from our commitment to providing health care in the patient's best interest in mind. Plan of care discussed with attending Physician Dr. Kandi Castellanos MD PGY-3 Planned Discharge Date 04/05/25 DS: Providers Provider Date of admission: 04/03/25 08:43 Primary care physician: Physician No Primary/Family Admitting Provider: Grace Chau DO Attending Provider on Admission: Grace Chau DO Consults: 04/03/25 10:05 Consult to Cardiology Routine Comment: Consulting Provider: Vlad Arauz 04/03/25 11:36 [facility] Referral - Nutrition Routine Comment: Positive screening for nutrition needs. [facility] Referral - Transportation Routine Comment: Positive screening for transportation needs. [facility] Referral - Utilities Routine Comment: Positive screening for utility assistance needs. Attending Provider on DC: Grace Chau DO Discharging Provider: Michael Kaiser DO Anticipated date of discharge: 04/05/25 DS: Diagnosis Problem List Completed Was Problem List Reviewed/Reconciled?: Yes Hospital Course Hospital Course Hospital course: Ms. Argueta is a 39F with hx of DM2, herniated disc, meth use, and depression admitted for NSTEMI. Initial Troponin I at 3.04, EKG showed sinus rhythm without ST elevations. Echo showed chronic LV thrombus with LVEF of 15%. Cardiology suggests no cardiac cath intervention at this point as it is likely due to nonischemic cardiomyopathy due to possibly methamphetamine use. She was put on heparin drip during her stay, and transition to Eliquis 5mg BID on discharge. Cardiology recommends Eliquis over Coumadin due to the needs for INR monitoring if pt was to put on Coumadin on discharge. Since pt is from [place] and already sees a gallery or museum guide in [place], pt was encouraged to follow up with them there for further management upon discharge. Pt was advised to follow up with PCP for GDMT. Pt is medically and physically stable for discharge. Diagnosis #NSTEMI, likely type II #Demand ischemia #HFrEF #Chronic LV thrombus #Depression #Anxiety #Herniated disc #Chronic lower back pain on opiods #Cra-pssrawd-ixocvyzks type II diabetes #Substance use disorder #Subclinical hypothyroidism Discharge Plan: Continue Taking Aspirin 81 mg once a day daily You have been started on Eliquis 5 mg twice a day for clot in your heart continue it for a month Continue taking Bumex 2 mg once a day daily, Spironolactone 25 mg once a day,Metoprolol succinate 25 mg once a day and Losartan 25 mg once a day and hold your medications if Blood pressure drops below 80/60 mmHg Take all other home meds as prescribed You need to follow with your gallery or museum guide as outpatient due to clot found in your heart and you would need another echo to monitor size of clot Follow up with your PCP as outpatient within a week In case of emergency Call 911 or come back to the ED Case discussed with my senior resident Dr. Castellanos Case discussed with my attending Dr. Kandi Kaiser, PGY 1 Time Spent with Patient Time attestation: Total time spent providing and/or coordinating discharge services: Time spent: Greater than 30 minutes Exam Vital Signs Temp Pulse Resp BP Pulse Ox O2 Del Method 97.1 F 67 18 118/74 98 Room Air 04/05/25 08:00 04/05/25 08:32 04/05/25 08:00 04/05/25 08:32 04/05/25 08:00 04/05/25 08:00 Narrative Exam General: Well appearing, well nourished, in no distress. Oriented x 3, normal mood and affect . Skin: Good turgor, no rash, unusual bruising or prominent lesions Mouth: Mucous membranes moist, no mucosal lesions. Heart: regular rate and rhythm, no murmur or gallop Lungs: Clear to auscultation and percussion. No rales, wheeze, or rhonchi Abdomen: No tenderness, organomegaly, or masses. Extremities: No amputations or deformities, cyanosis, edema or varicosities, peripheral pulses intact. Discharge Plan Plan Patient Disposition: HOME (Self Care) Patient condition on transfer: Stable Care Plan Goals: Continue Taking Aspirin 81 mg once a day daily You have been started on Eliquis 5 mg twice a day for clot in your heart continue it for a month Continue taking Bumex 2 mg once a day daily, Spironolactone 25 mg once a day,Metoprolol succinate 25 mg once a day and Losartan 25 mg once a day and hold your medications if Blood pressure drops below 80/60 mmHg Take all other home meds as prescribed You need to follow with your gallery or museum guide as outpatient due to clot found in your heart and you would need another echo to monitor size of clot Follow up with your PCP as outpatient within a week In case of emergency Call 911 or come back to the ED Prescriptions/Referrals Prescriptions/Med Rec: New bumetanide 2 mg tablet 2 mg PO QDAY Qty: 90 0RF Rx Instructions: Hold if Blood pressure BELOW 80/60 aspirin 81 mg Tablet,Delayed Release (Dr/Ec) 81 mg PO QDAY Qty: 90 0RF metoprolol succinate 25 mg tablet extended release 24 hr 25 mg PO QDAY Qty: 90 0RF Rx Instructions: Hold if Blood pressure BELOW 80/60 apixaban 5 mg tablet 5 mg PO BID 30 Days Qty: 60 0RF Continued acetaminophen 500 mg tablet 500 mg PO .4-6 PRN (Reason: pain) baclofen 10 mg tablet 10 mg PO BID PRN (Reason: muscle spasm) Rx Instructions: Take 1 tablet 2 times per day as needed- muscle spasm for 5 days escitalopram oxalate 10 mg tablet 10 mg PO QDAY alprazolam [Xanax] 0.5 mg tablet 0.5 mg PO BID PRN (Reason: anxiety) sertraline 25 mg tablet 25 mg PO QDAY metformin 500 mg tablet 500 mg PO QDAY spironolactone [Aldactone] 25 mg tablet 25 mg PO QDAY Qty: 90 0RF Rx Instructions: Hold if Blood pressure BELOW 80/60 mmHg losartan 25 mg tablet 25 mg PO QDAY Qty: 90 0RF Rx Instructions: Hold if Blood pressure BELOW 80/60 Discontinued metoprolol tartrate 25 mg tablet 25 mg PO BID Patient Comments: TAKE 1 TABLET BY MOUTH TWICE A DAY metoprolol succinate 25 mg tablet extended release 24 hr 25 mg PO BID bumetanide 2 mg tablet 2 mg PO BID Patient Comments: TAKE 1 TABLET BY MOUTH EVERY DAY cephalexin 500 mg capsule 500 mg PO BID Referrals: No Primary/Family,Physician [Primary Care Provider] - Patient/Caregiver Discharge Instructions Print Language: Yakut Stand Alone Forms: Mireya Award Info., Patient Portal Info Letter Discharge Order Discharge Orders: Discharge (Routine); Ordered 04/05/25 Ordered By: Jakob Castellanos Quality Discharge Quality Measures none
[2025-04-05] MEDS: LOSARTAN POTASSIUM 25 MG TABLET PO (09:19)
[2025-04-05] MEDS: SPIRONOLACTONE 25 MG TABLET PO (09:19)
[2025-04-05] MEDS: HYDROcodone/APAP 5/325 TABLET 1 TAB PO (09:43)
--- NOTE | 2025-04-05 11:54 | PC.SS ---
SS follow up note; Patient will discharge home today.
--- NOTE | 2025-04-05 14:20 | ESPR_ITS ---
<Statement entered by Vlad Arauz MD - 04/10/25 12:17> I personally examined the patient and reviewed the findings with PGY 2 Dr. Chatman patient is known to have history of polysubstance abuse methamphetamine use cardiomyopathy severe LV dysfunction to the hospital with shortness of predominant heart failure symptoms for 1 week now has troponin elevation with persistent possibly due to acutely decompensated heart failure not any did not have any chest pain or ischemic symptoms. Patient normally is followed by manager training and development in [place] recommend he see him as soon as discharge for further evaluation no need for angiogram since he does not have any chest pain troponin elevation clearly appears with type II troponin elevation. Evaluate the patient with resident physician agree with the treatment plan recommendation as documented GDMT for heart failure systolic heart failure will be continued.The patient also has chronic LV thrombus difficult to manage her Coumadin hence Eliquis is appropriate 5 mg twice daily continue diuretic therapy spironolactone will be added to bumetanide continue metoprolol low-dose for beta-yamile as tolerated along with losartan for ARB. Documentation for date of: 04/05/25 Subjective Subjective Interval history: Pt is seen at bedside, currently saturating on room air. Pt complains of some shortness of breath which has been on going for a long time. Pt also appears to be very lethargic, and endorses to orthopnea. Although her symptoms have improved since hospitalization however pt understands her symptoms are due to chronic HF currently EF is 15%. Pt is cleared to be discharged and is advised to follow up with her manager training and development in [place]. Pt states she wants to get better and will be complaint with her medications and regular cardiology visits as well as routine follows ups with primary care. Pt admits that she has made poor choices which has landed her in this situation of her current health. Pt is emotional about her heart health and wants to get better. Pt is educated on importants of her compliance with her GDMT and to follow up with manager training and development. Recommend repeating echo in 3 months after GDMT to see if there is improvement. Currently pt is stage lV HF therefore is not a candidate for ICD. vitals are stable, BP is within normal limits, saturating above 92% on room air. labs are reviewed and are within normal limtis. Exam Vital Signs Temp Pulse Resp BP Pulse Ox O2 Del Method 97.1 F 64 12 133/110 H 98 Room Air 07/22/25 08:00 04/05/25 12:00 04/05/25 08:51 04/05/25 09:19 04/05/25 08:00 04/05/25 08:00 Narrative Exam GENERAL: A&Ox3 . Awake, Not in acute distress NEURO: no focal neurological deficits HEENT: Atraumatic, Normocephalic. mucous membranes moist. Eyes open, symmetrical, & clear HEART: Normal Heart Sounds LUNGS: Clear to auscultation with no wheezing or crackles. ABDOMEN: soft, non-distended, non-tender, bowel sounds heard, no guarding or rebound tenderness SKIN: No Rash or ecchymoses EXTREMITIES: trace pitting edema, no tenderness, able to move all 4 extremities, pedal pulses palpated Objective Labs 04/05/25 05:42 04/05/25 05:42 Labs: Laboratory Results - last 24 hr 04/04/25 04/04/25 04/05/25 16:50 23:06 05:42 WBC 6.3 RBC 5.32 H Hgb 13.1 Hct 41.8 MCV 79 L MCH 24.6 L MCHC 31.3 RDW Std Deviation 49.9 H Plt Count 206 D Neut % (Auto) 50 Lymph % (Auto) 38 [place] % (Auto) 9 Eos % (Auto) 2 Baso % (Auto) 1 Neut # (Auto) 3.1 Lymph # (Auto) 2.4 [place] # (Auto) 0.6 Eos # (Auto) 0.1 Baso # (Auto) 0.1 Immature Gran # (Auto) 0.02 H Absolute Nucleated RBC 0.00 Immature Gran % 0 Nucleated RBC % 0 APTT 58.5 H 27.7 D Sodium 137 Potassium 4.4 Chloride 100 Carbon Dioxide 28.8 Anion Gap 8 BUN 13 Creatinine 0.9 Estim Creat Clear Calc 92.5 eGFR > 60 BUN/Creatinine Ratio 14 Glucose 92 Calculated Osmolality 273 L Calcium 8.1 L Phosphorus 3.2 Magnesium 1.6 Quality Measures Quality Measures none Assessment & Plan Assessment Current Active Medications: Generic Name Dose Route Start Last Admin Trade Name Freq PRN Reason Stop Dose Admin Acetaminophen 650 mg 04/03/25 08:43 Acetaminophen 325 Mg Tablet PO 05/03/25 08:42 Q6H PRN Fever >101.5 Acetaminophen 650 mg 04/03/25 08:43 Acetaminophen 325 Mg Tablet PO 05/03/25 08:42 Q6H PRN PAIN SCALE 1-3 (mild Hydrocodone Bitart/Acetaminophen 1 tab 04/03/25 13:16 04/05/25 09:43 Hydrocodone/Apap 5/325 Tablet PO 04/08/25 13:15 1 tab Q6HR PRN Administration PAIN SCALE 4-6(MODERATE) Alprazolam 0.5 mg 04/03/25 13:24 04/04/25 23:27 Alprazolam 0.25 Mg Tablet PO 04/08/25 13:23 0.5 mg BID PRN Administration anxiety Apixaban 5 mg 04/04/25 21:00 04/05/25 08:32 Apixaban 2.5 Mg Tablet PO 05/04/25 20:59 5 mg BID CAROL Administration Aspirin 81 mg 04/04/25 09:00 04/05/25 08:32 Aspirin Ec 81 Mg Tabec PO 05/04/25 08:59 81 mg QDAY CAROL Administration Baclofen 10 mg 04/04/25 09:00 04/05/25 08:32 Baclofen 10 Mg Tablet PO 05/04/25 08:59 10 mg QDAY CAROL Administration Bumetanide 2 mg 04/03/25 16:15 04/05/25 08:32 Bumetanide Inj 0.25 Mg/Ml Vial 4 Ml IVP 05/03/25 16:14 2 mg QDAY CAROL Administration Dextrose 25 ml 04/03/25 15:20 Dextrose 50%-Water Inj 50 Ml Syringe IV 05/03/25 15:19 Q15MIN PRN BG 50-70 responsive npo pt Dextrose 50 ml 04/03/25 15:20 Dextrose 50%-Water Inj 50 Ml Syringe IV 05/03/25 15:19 Q15MIN PRN BG <50 OR BG <70 & pt unresponsive Escitalopram Oxalate 10 mg 04/04/25 09:00 04/05/25 08:32 Escitalopram Oxalate 10 Mg Tablet PO 05/04/25 08:59 10 mg QDAY CAROL Administration Glucagon 1 mg 04/03/25 15:20 Glucagon Inj 1 Mg Vial IM Q15MIN PRN BG <70, and no IV access Insulin Human Lispro 0 unit 04/03/25 17:00 04/05/25 11:15 Insulin Lispro (Admelog) 1 Unit/0.01 Ml Unit SC 05/03/25 16:59 Not Given AC CAROL Protocol Lidocaine 1 patch 04/03/25 13:17 Lidocaine 5% 1 Patch TOP 05/03/25 13:16 UD PRN Back pain Losartan Potassium 25 mg 04/05/25 09:00 04/05/25 09:19 Losartan Potassium 25 Mg Tablet PO 05/05/25 08:59 25 mg QDAY CAROL Administration Metoprolol Succinate 25 mg 04/05/25 09:00 04/05/25 08:32 Metoprolol Succinate Xl 25 Mg Tabcr PO 05/05/25 08:59 25 mg QDAY CAROL Administration Nitroglycerin 0.4 mg 04/03/25 15:38 Nitroglycerin 0.4 Mg Subl Btl #25 SL Q5MIN PRN CHEST PAIN Ondansetron HCl 4 mg 04/03/25 18:45 04/04/25 19:15 Ondansetron Inj 2 Mg/Ml Inj 2 Ml IVP 05/03/25 18:44 4 mg Q8HR PRN Administration NAUSEA OR VOMITING Protocol Pantoprazole Sodium 40 mg 04/03/25 09:00 04/05/25 08:31 Pantoprazole Inj 40 Mg Vial IVP 05/03/25 08:59 40 mg QDAY CAROL Administration Sennosides 1 tab 04/03/25 08:43 04/05/25 09:18 Senna Tablet PO 05/03/25 08:42 1 tab QDAY PRN Administration constipation Protocol Sertraline HCl 25 mg 04/03/25 13:30 04/05/25 08:32 Sertraline Hcl 25 Mg Tablet PO 05/03/25 13:29 25 mg QDAY CAROL Administration Spironolactone 25 mg 04/03/25 16:15 04/05/25 09:19 Spironolactone 25 Mg Tablet PO 05/03/25 16:14 25 mg QDAY CAROL Administration Plan Ms. Argueta is a 39-year-old female with significant past medical history of CHF, diabetes, hypertension, chronic smoker, chronic methamphetamine abuse presented to the hospital with chief complaints of chest pain and shortness of breath since 1 week. Cardiology is consulted in view of elevated troponins and suspected ACS # Dilated cardiomyopathy, likely nonischemic # HFrEF, EF 15% # Chronic LV thrombus # 2/2 Methamphetamine abuse # Poor medication compliance - Endorsed that she had chest pain and tingling in the left arm with shocklike sensation for which she came to the ED and was discharged on gabapentin few days ago before the day of admission. - After getting discharged to home, noted chest discomfort and shocklike sensation in left upper arm and had difficulty in doing her routine daily activities due to shortness of breath. - Endorsed that she took a dose of Bumex 2 mg which is her nonbiological mother's medication. Endorsed that she had significant orthopnea and is not able to lie down in supine position. - Denies radiation of chest pain, fever, nausea, vomiting, abdominal discomfort. Denies IV drug abuse - Vitals at the time of admission are stable - Labs at the time of admission significant for microcytosis and hypochromia, sodium 133, magnesium 1.2, total bilirubin 1.4, AST 414, ALT 417, troponin 3.041, TSH 4.11 - Urine analysis showed turbid urine with 1+ proteinuria, 18 squamous epithelial cells - Urine toxicology tested positive for opiates and marijuana - EKG at the time of admission is significant for normal sinus rhythm with poor R wave progression without any ST-T wave changes - Chest x-ray showed no infiltrates with enlarged cardiac contour - Echo showed dilated nonischemic cardiomyopathy with severe global hypokinesis ejection fraction of 15% with evidence of left ventricular apical mural thrombus, 2 cm x 1 cm appears to be chronic with echogenic appearance. The RA cavity size is moderately increased. Mild mitral regurgitation due to dilated mitral annulus. Plan - Recommended to continue heparin drip for now, and transition to oral anticoagulation tomorrow - Started on Bumex 2 mg IV daily and spironolactone 25 Mg p.o. daily for now, will titrate the dose based on patient's clinical condition and how she tolerates the medication - Started on metoprolol tartrate 25 Mg p.o. twice daily as patient does not appear to be in acute heart failure - If tolerates all the above medications, will start on LISA or ARB's - Strict input on output monitoring, fluid and salt restriction - Keep potassium greater than 4 and magnesium greater than 2 - Not a candidate for DIRECTOR OF RADIOLOGY/ICD. Patient found to have poor prognosis depending upon her clinical condition -Pt maybe discharged home on eliquis and GDMT and follow up with her manager training and development in [place] # Elevated troponins, NSTEMI, likely type II # Demand ischemia - Troponins at the time of admission is 3.041, downtrended to 2.8 - EKG did not show any evidence of ST or T wave changes Plan - No need of pending troponins, as patient less likely to have ACS - Can continue aspirin 81 Mg p.o. daily for now but less likely to have ACS - No cardiac cath for now #Hypomagnesemia #Elevated liver enzymes #Elevated total bilirubin #Subclinical hypothyroidism #Depression #Anxiety #herniated disc #Chronic lower back pain on opioids #[id number] type II diabetes #Substance use disorder Management as per primary team Thank you for allowing us to involved in the care of the patient Assessment and plan discussed with my attending physician Dr. Davonte Chatman (PGY-2)- Internal medicine resident
== END 2025-04-05 14:45 | disposition home or self-care (01) | DRG 207 ==
LOC: SERX 06:14 → SERHOLD 09:10 → S2NX 10:12
PROVIDERS: Emergency Medicine; Student in an Organized Health Care Education/Training Program; Admitting Provider Internal Medicine; Emergency Provider Emergency Medicine; Visit Provider Internal Medicine
DX: I51.3 Intracardiac thrombosis, not elsewhere classified (principal); I42.7 Cardiomyopathy due to drug and external agent; E11.9 Type 2 diabetes mellitus without complications; F32.A Depression, unspecified; E83.42 Hypomagnesemia; E03.8 Other specified hypothyroidism; F41.9 Anxiety disorder, unspecified; G89.29 Other chronic pain; Z79.891 Long term (current) use of opiate analgesic; M54.50 Low back pain, unspecified; I42.0 Dilated cardiomyopathy; F12.90 Cannabis use, unspecified, uncomplicated; I21.A1 Myocardial infarction type 2; E87.6 Hypokalemia; Z91.148 Patient's other noncompliance with medication regimen for other reason; F15.10 Other stimulant abuse, uncomplicated; I11.0 Hypertensive heart disease with heart failure; I50.20 Unspecified systolic (congestive) heart failure; R16.0 Hepatomegaly, not elsewhere classified; Z79.01 Long term (current) use of anticoagulants; Z79.82 Long term (current) use of aspirin; Z79.84 Long term (current) use of oral hypoglycemic drugs; Z79.899 Other long term (current) drug therapy; Z88.8 Allergy status to other drugs, medicaments and biological substances
CPT/HCPCS: 36415; 70450; 71045; 76705; 80048; 80053; 80061; 80074; 80076; 80307; 80320; 81001; 83036; 83735; 84100; 84439; 84443; 84484; 85025; 85610; 85730; 93005; 93306; 99285; J1644; J2405; J2470; J3475; J3490; J7050; A9270; G0480

== ENCOUNTER 2025-05-31 03:58 | Emergency (ER) | payer OTHER, SELFPAY ==
[2025-05-31 04:10] VITALS: BP 131/91; PULSE 86; PULSE 94; RESP 18; TEMP 36.6; O2SAT 98; O2SAT 99; BMI 30.7
[2025-05-31 04:57] LABS: Basophils # (Auto) 0.1 Thou/mm3 (0.0-0.2); Basophils % (Auto) 1 % (0-2.5); Eosinophils # (Auto) 0.4 Thou/mm3 (0.0-0.5); Eosinophils % (Auto) 4 % (0-10); Hematocrit 43.0 % (36.0-46.0); Hemoglobin 13.4 g/dL (12.0-16.0); Immature Granulocytes Auto 0.06 Thou/mm3 (0.00-0.00); Lymphocytes # (Auto) 3.0 Thou/mm3 (1.0-4.8); Lymphocytes % (Auto) 31 % (10-50); Mean Corpuscular HGB Conc 31.2 g/dl (31.0-37.0); Mean Corpuscular Hemoglobin 25.5 pg (25.0-35.0); Mean Corpuscular Volume 82 fL (80-100); Monocytes # (Auto) 0.8 Thou/mm3 (0.0-0.8); Monocytes % (Auto) 8 % (0-12); Neutrophils # (Auto) 5.4 Thou/mm3 (1.8-7.7); Neutrophils % (Auto) 56 % (37-80); Nucleated Red Blood Cell # 0.00 Thou/mm3 (0.00-0.00); Nucleated Red Blood Cell % 0 /100 WBC (0); Platelet Count 241 Thou/mm3 (140-440); RDW Standard Deviation 57.9 fL (36.4-46.3); Red Blood Count 5.26 Miln/mm3 (4.00-5.20); White Blood Count 9.8 Thou/mm3 (3.6-11.0)
[2025-05-31 05:17] LABS: Alanine Aminotransferase 17 U/L (10-49); Albumin, Serum 4.6 gm/dL (3.5-5.0); Albumin/Globulin Ratio 1.5 (1.2-2.2); Alkaline Phosphatase 113 U/L (46-116); Anion Gap 9 (7-16); Aspartate Amino Transferase 25 U/L (0-34); BUN/Creatinine Ratio 11 Ratio (12-20); Bilirubin,Total 0.8 mg/dL (0.3-1.2); Blood Urea Nitrogen 8 mg/dL (9-23); Calcium 9.4 mg/dL (8.3-10.6); Calcium (Corrected) 9.4 mg/dL (8.5-10.1); Carbon Dioxide 29.3 mMol/L (20.0-31.0); Chloride 99 mMol/L (98-107); Creatinine (Component) 0.7 mg/dL (0.6-1.3); Estimated Creatinine Clearance 109.0 mL/min (>60); Globulin 3.0 gm/dL (2.3-3.5); Glucose 80 mg/dL (74-106); Osmolality,Calculated 271 (275-295); Potassium 4.0 mMol/L (3.4-5.1); Sodium 137 mMol/L (136-145); Total Protein 7.6 gm/dL (5.7-8.2); eGFR > 60 See Note
[2025-05-31 05:37] LABS: HCG,Qualitative Serum Negative
--- NOTE | 2025-05-31 06:20 | XR_ITS ---
Examination: Pelvic ultrasound, transabdominal, complete Technique: Transabdominal ultrasound of the pelvis performed using grayscale imaging Date and time of exam: May 31, 2025 0733 hours INDICATIONS: Postmenopausal bleeding and pelvic cramping one week FINDINGS: Uterus 8.0 cm, abnormally thickened endometrial stripe 1.6 cm Right ovary 2.8 cm arterial flow Left ovary 5.0 cm arterial flow to 0.7 x 2.3 x 2.8 cm cyst IMPRESSION: Abnormally thickened endometrial stripe. Differential would include endometrial hyperplasia, malignant neoplasm of the endometrium Recommend MRI pelvis follow-up pre and postcontrast
[2025-05-31 06:21] VITALS: BP 118/77; PULSE 86; RESP 14; O2SAT 99
--- NOTE | 2025-05-31 06:23 | EDNOTE_ITS ---
<Statement entered by Velma Duron MD - 06/20/25 06:56> I, Velma Duron MD, have reviewed the history, exam, and assessment of the patient. I have evaluated the patient independently and agree with the plan of care documented by [ ]. All diagnostic studies were reviewed and discussed. I confirm the diagnosis as documented by the Resident. I was present during the Medical Decision Making for this patient. The patient's plan of care was created between myself and the Resident and consistent with our discussion of the patient's case. ED OB Contraction Preg RMI/HPI General Chief complaint: Vaginal Bleeding Stated complaint: ABDOMINAL PAIN,VAGINAL BLEEDING Time Seen by Provider: 05/31/25 06:01 Source: patient Arrival date/time: 05/31/25 03:58 Mode of arrival: EMS RME / HPI RME / HPI Narrative: Ms. Argueta is a 40-year-old female with HFrEF EF 15% 04/08, nonischemic cardiomyopathy, chronic left ventricular apical thrombus, depression, anxiety, herniated disc, chronic lower back pain, NIDDM type II and substance use disorder who presented to [facility] ED 05/31/2025 with a chief complaint of vaginal bleeding and abdominal cramps. Patient reported that her symptoms started about a week ago and she has been having scant bright red blood from her vagina with cramping abdominal pain. Patient reports her LMP was about a year ago, denies any discharge, fevers, chills and other symptoms. She does endorse taking [place] at home for her pain it has not improved her symptoms. Related Data Home Medications ?Medication ?Instructions ?Recorded ?Confirmed acetaminophen 500 mg tablet 500 mg PO .4-6 PRN pain 04/03/25 alprazolam 0.5 mg tablet (Xanax) 0.5 mg PO BID PRN anx iety 04/03/25 04/03/25 baclofen 10 mg tablet 10 mg PO BID PRN muscle spas m 04/03/25 04/03/25 escitalopram oxalate 10 mg tablet 10 mg PO QDAY 04/03/25 metformin 500 mg tablet 500 mg PO QDAY 04/03/25 07 sertraline 25 mg tablet 25 mg PO QDAY 04/03/2504/03 Previous Rx's ?Medication ?Instructions ?Recorded aspirin 81 mg tablet,delayed 81 mg PO QDAY #90 tabs release bumetanide 2 mg tablet 2 mg PO QDAY #90 tabs losartan 25 mg tablet 25 mg PO QDAY #90 tabs 04/04 metoprolol succinate 25 mg 25 mg PO QDAY #90 tabs 03/16 10/09 tablet,extended release 24 hr spironolactone 25 mg tablet 25 mg PO QDAY #90 tabs (Aldactone) cephalexin 500 mg capsule 500 mg PO BID 7 days #13 cap s 05/31/25 hydrocodone 5 mg-acetaminophen 325 1 tab PO BID PRN pa in (scale score 05/31/25 mg tablet 7-10) 5 days #10 tabs Allergies Allergy/AdvReac Type Severity Reaction Status Date / Time diphenhydramine Allergy Mild ANAPHALATIC Verified 12/30/22 12:41 REACTION Review of Systems Review of Systems Systems Reviewed: All systems reviewed, normal except as documented Past Medical History Past Medical History Comments PMH COMMENT: Past Medical History: HFrEF EF 15% 04/08, nonischemic cardiomyopathy, chronic left ventricular apical thrombus, depression, anxiety, herniated disc, chronic lower back pain, NIDDM type II and substance use disorder Social History: History of 3 pack years smoking. Denies alcohol and drug use. Surgical History: x 3 Allergies: Reports allergy to Benadryl ED Exam Narrative Physical exam: Physical Exam General: Awake and in no acute distress. Conversational and non-toxic appearing. HEENT: Normocephalic, atraumatic, mucous membranes moist. Heart: Regular rate and rhythm, no murmurs. Lungs: Clear to auscultation with no wheezing or crackles. Abdomen: Soft, nondistended, Minimal tenderness lower abdomen, positive bowel sounds. ?No guarding or rebound tenderness. Neurologic: Alert and oriented x3, no gross neurological deficit, and patient able to move all 4 extremities. Extremities: Trace BLE Skin: No rash or ecchymoses. Course Course Course Narrative: Patient seen in ER Rm#7; 40-year-old female presented with chief complaint of vaginal bleeding and abdominal cramping Workup: CBC: WBC 9.8, RBC 5.26, hemoglobin 13.4, hematocrit 43%, platelet count 241 CMP: Sodium 137, potassium 4.0, chloride 99, bicarb 29.3, BUN 8, creatinine 0.7, GFR greater than 60, glucose 80, osmolality 271, corrected calcium 9.4, total bilirubin 0.8, AST ALT and alk phos within normal limits, hCG negative Urine analysis: Turbid urine clarity, blood 3 positive, leukocyte esterase positive, RBC 1, WBC 13, amorphous crystals present, bacteria rare urine culture sent. Urine toxicology positive for opiates and THC Pelvic ultrasound shows abnormally thickened endometrial stripe left ovarian cyst 0.7 X2.3X 2.8cm Patient was given dicyclomine p.o. x 1 for pain, started on cephalexin for UTI and was given morphine 4 mg IV push x 1 Findings discussed with patient, discharge instructions as below, patient will be discharged home. Quality Measures none Orders Category Date Time Status US pelvic complete Stat Exams 05/31/25 06:20 Completed CBC Stat Lab 05/31/25 04:43 Completed CMP [Comprehensive Metabolic Panel] Stat Lab 05/31/25 04:43 Completed Drug Screen,Urine Stat Lab 05/31/25 06:31 Completed HCG,Qualitative Serum Stat Lab 05/31/25 04:43 Completed Urinalysis, C/S if Indicated Stat Lab 05/31/25 06:31 Completed Urine Culture Stat Lab 05/31/25 06:31 Received Dicyclomine [Bentyl] Med 05/31/25 06:40 Discontinued 10 mg PO X1 ONE HYDROcodone*/APAP 5/325 [Searcy 5/325] Med 05/31/25 06:20 Discontinued 1 tab PO X1 ONE Morphine* Inj Med 05/31/25 08:26 Discontinued 4 mg IVP X1 ONE cephALEXin [Keflex] Med 05/31/25 08:11 Discontinued 500 mg PO X1 ONE Vital Signs Vital signs: Vital Signs Temperature 97.8 F 05/31/25 04:10 Pulse Rate 86 05/31/25 04:10 Respiratory Rate 18 05/31/25 04:10 Blood Pressure 131/91 H 05/31/25 04:10 Pulse Oximetry (%) 99 05/31/25 04:10 Oxygen Delivery Method Room Air 05/31/25 04:10 Vaginal Bleeding MDM Narrative MDM Narrative: # Pelvic pain # Thickened endometrial stripe # Vaginal bleeding # Uncomplicated UTI Patient seen in ER Rm#7; 40-year-old female with PMH HFrEF EF 15% 04/08, nonischemic cardiomyopathy, chronic left ventricular apical thrombus, depression, anxiety, herniated disc, chronic lower back pain, NIDDM type II and substance use disorder presented with chief complaint of vaginal bleeding and abdominal cramping. Physical exam significant for pelvic pain and tenderness Hemoglobin stable 13.4 no white count noted and CMP unremarkable hCG negative Urine analysis showed turbid urine clarity, blood 3 positive, leukocyte esterase positive, RBC 1, WBC 13, amorphous crystals present, bacteria rare, clinical evidence of UTI Urine culture sent. Pelvic ultrasound shows abnormally thickened endometrial stripe left ovarian cyst 0.7 X2.3X 2.8cm Patient was given dicyclomine p.o. x 1 for pain, started on cephalexin for UTI and was given morphine 4 mg IV push x 1 Findings discussed with patient, discharge instructions as below, patient will be discharged home. Case discussed with Attending Physician Dr. Domi Mena MD Internal Medicine PGY-2 Disclaimer: This note was dictated by speech recognition. Minor errors in food and beverage manager may be present due to voice recognition software. Patient data External records reviewed:: [facility] previous records Clinical information provided by:: patient Social determinants that could affect healthcare access:: substance use Patient has the following chronic illnesses:: HFrEF EF 15% 04/08, nonischemic cardiomyopathy, chronic left ventricular apical thrombus, depression, anxiety, herniated disc, chronic lower back pain, NIDDM type II and substance use disorder How is presenting disease/condition affected by chronic disease/condition?: uneffected by Evaluation data The following diagnostics were reviewed and interpreted by me:: lab results and radiology exam(s) Lab and/or radiology exams considered but not ordered:: None Interpretation Summary: CBC: WBC 9.8, RBC 5.26, hemoglobin 13.4, hematocrit 43%, platelet count 241 CMP: Sodium 137, potassium 4.0, chloride 99, bicarb 29.3, BUN 8, creatinine 0.7, GFR greater than 60, glucose 80, osmolality 271, corrected calcium 9.4, total bilirubin 0.8, AST ALT and alk phos within normal limits, hCG negative Urine analysis: Turbid urine clarity, blood 3 positive, leukocyte esterase positive, RBC 1, WBC 13, amorphous crystals present, bacteria rare urine culture sent. Urine toxicology positive for opiates and THC Pelvic ultrasound shows abnormally thickened endometrial stripe left ovarian cyst 0.7 X2.3X 2.8cm Medications / Prescriptions Medications or Prescriptions considered but not ordered:: None Medication administrations:: Medication Administration History Discontinued Medications Hydrocodone Bitart/Acetaminophen (Hydrocodone/Apap 5/325 Tablet) 1 tab PO X1 ONE Stop: 05/31/25 06:21 Last Admin: 05/31/25 06:52 Dose: Not Given Documented By: ANDRES Non-Admin Reason: Cancelled by Provider Cephalexin HCl (Cephalexin 250 Mg Capsule) 500 mg PO X1 ONE Stop: 05/31/25 08:12 Last Admin: 05/31/25 08:32 Dose: 500 mg Documented By: DONNA Dicyclomine HCl (Dicyclomine 10 Mg Capsule) 10 mg PO X1 ONE Stop: 05/31/25 06:41 Last Admin: 05/31/25 06:52 Dose: 10 mg Documented By: ANDRES Morphine Sulfate (Morphine Sulf Inj 4 Mg/Ml Vial) 4 mg IVP X1 ONE Stop: 05/31/25 08:27 Last Admin: 05/31/25 08:32 Dose: 4 mg Documented By: DONNA As Above Consultations Consultation(s) initiated? (list below): No Diagnosis Vaginal Bleeding Differential Diagnosis: dysfunctional uterine bleeding and vaginal bleeding Most likely diagnosis given after review of the tests above:: DUB, UTI Admission Indicated Admission indicated?: not indicated Admission Request Was there a request for admission?: No Disposition Plan Disposition Plan: Discharge Discharge Attestation Discharge Attestation: The patient and all family members were given an opportunity to ask questions and understood the discharge instructions. Discharge instructions specifically effects, indications for sooner follow up or return to the emergency department, and the expected course of current diagnosis. Patient condition: Stable Discharge Plan Plan Patient Disposition: HOME (Self Care) Patient condition on transfer: Stable Health Concerns: - You were seen in the emergency department for vaginal bleeding and abdominal cramping. Your urine analysis showed that you have a urinary tract infection, we started you on Keflex an antibiotic for your urinary tract infection, complete treatment with Keflex for 7 days total, we gave you your first dose in the emergency department. [facility] for follow-up with your urine cultures. - We also did a pelvic ultrasound which shows that you have a ovarian cyst and some endometrial thickening, we highly recommend following up with the BIS[facility] GR[facility]ER, you can follow-up with [facility] for further workup (address provided below) - Please complete your antibiotic treatment course for 7 days total with Keflex (first dose in the evening), it is very important that you take all the pills as prescribed. - Please continue all your other medications as prescribed, follow-up with your institutional nutrition consultant. - Return to the emergency department if your symptoms worsen Prescriptions/Referrals Prescriptions/Med Rec: New cephalexin 500 mg capsule 500 mg PO BID 7 Days Qty: 13 0RF hydrocodone-acetaminophen 5-325 mg tablet 1 tab PO BID MDD 10-625 PRN (Reason: pain (scale score 7-10)) 5 Days Qty: 10 0RF No Action acetaminophen 500 mg tablet 500 mg PO .4-6 PRN (Reason: pain) baclofen 10 mg tablet 10 mg PO BID PRN (Reason: muscle spasm) Rx Instructions: Take 1 tablet 2 times per day as needed- muscle spasm for 5 days escitalopram oxalate 10 mg tablet 10 mg PO QDAY alprazolam [Xanax] 0.5 mg tablet 0.5 mg PO BID PRN (Reason: anxiety) sertraline 25 mg tablet 25 mg PO QDAY metformin 500 mg tablet 500 mg PO QDAY bumetanide 2 mg tablet 2 mg PO QDAY Qty: 90 0RF Rx Instructions: Hold if Blood pressure BELOW 80/60 aspirin 81 mg Tablet,Delayed Release (Dr/Ec) 81 mg PO QDAY Qty: 90 0RF metoprolol succinate 25 mg tablet extended release 24 hr 25 mg PO QDAY Qty: 90 0RF Rx Instructions: Hold if Blood pressure BELOW 80/60 spironolactone [Aldactone] 25 mg tablet 25 mg PO QDAY Qty: 90 0RF Rx Instructions: Hold if Blood pressure BELOW 80/60 mmHg losartan 25 mg tablet 25 mg PO QDAY Qty: 90 0RF Rx Instructions: Hold if Blood pressure BELOW 80/60 Referrals: Elijah Meade MD [Physician, [facility]] - In 1 week No Primary/Family,Physician [Primary Care Provider] - In 1 week Sana Mena MD [Resident, Internal Medicine] - In 1 week Problem List Clinical Impression: UTI (urinary tract infection), Dysfunctional uterine bleeding Patient/Caregiver Discharge Instructions Discharge Activity: activity as tolerated Education Materials: Understanding Uterine Bleeding, ED CYSTITIS Female Adult Print Language: Italian Stand Alone Forms: [employer] Award Info., Patient Portal Info Letter
[2025-05-31] MEDS: DICYCLOMINE 10 MG CAPSULE PO (06:52)
[2025-05-31 06:58] LABS: Collection Type, Urine Clean Catch
[2025-05-31 07:09] LABS: Amorphous Crystals,Urine Present (Absent); Bacteria,Urine Rare; Bilirubin,Urine Negative (Negative); Blood,Urine 3+ (Negative); Clarity,Urine Turbid (Clear/Hazy); Color,Urine Lt-Yellow (Lt Yel-Yel); Glucose, Urine Negative (Negative); Ketones,Urine Negative (Negative); Leukocyte Esterase,Urine Positive (Negative); Nitrite,Urine Negative (Negative); PH,Urine 6.0 (5.0-7.0); Protein,Urine Negative (Neg - Trace); RBC,Urine 1 /hpf (0-3); Specific Gravity,Urine 1.005 (1.001-1.035); Squamous Epithelial Cell,Urine 4 /hpf (0-5); Urobilinogen,Urine Negative mg/dL (0.0-1.0); WBC,Urine 13 /hpf (0-5)
[2025-05-31 07:11] LABS: Culture Indicated,Urine Yes
[2025-05-31 07:19] LABS: Amphetamine/Methamp Scrn,U Negative (Negative); Barbiturate Screen,Urine Negative (Negative); Benzodiazepines Screen,Urine Negative (Negative); Benzoylecgonine Screen, Ur Negative (Negative); Fentanyl Screen,Urine Negative (Negative); Opiate Screen,Urine Positive (Negative); THC Screen,Urine Positive (Negative)
[2025-05-31 08:00] VITALS: BP 115/75; PULSE 77; RESP 16; O2SAT 96
[2025-05-31] MEDS: MORPHINE SULF INJ 4 MG/ML VIAL IVP (08:32)
[2025-05-31 09:37] VITALS: BP 117/87; PULSE 87; RESP 17; TEMP 36.2; O2SAT 99
[2025-05-31 10:15] VITALS: PULSE 88; RESP 18; TEMP 36.9; O2SAT 99
== END 2025-05-31 10:50 | disposition home or self-care (01) ==
PROVIDERS: Emergency Provider Emergency Medicine
DX: N39.0 Urinary tract infection, site not specified (principal); N83.202 Unspecified ovarian cyst, left side; R93.89 Abnormal findings on diagnostic imaging of other specified body structures
CPT/HCPCS: 36415; 76856; 80053; 80307; 81001; 84703; 85025; 87077; 87086; 87186; 96374; 99283; J2270; A9270

== ENCOUNTER 2025-06-17 21:41 | Emergency (ER) | payer OTHER, SELFPAY ==
[2025-06-17 21:46] VITALS: PULSE 90; RESP 18; O2SAT 98; BMI 32.9
--- NOTE | 2025-06-17 21:48 | PD.EDADULT ---
ED General RME/HPI General Chief complaint: Vaginal Bleeding Stated complaint: VAGINAL BLEEDING Time Seen by Provider: 06/17/25 21:48 Arrival date/time: 06/17/25 21:41 RME / HPI RME / HPI narrative: Chang is a 40 y/o female with PMHx nonischemic cardiomyopathy, diabetes, hypertension, chronic smoker, chronic methamphetamine abuse comes into the ED for an evaluation of vaginal bleeding that has been worsening. Patient reports she has had similar symptoms to this before about 2 weeks ago she had it worked up with a pelvic ultrasound and was discharged from the ED. She says that she takes a blood thinner called Eliquis. She says that she wears diapers and she has gone through 3 diapers. She denies any coughing up blood or having bloody bowel movements. She does not feel weak at this time, however does endorse some abdominal pain as well. She denies taking any blood thinners at this time. She denies anyone around her feeling at this. She is pending authorization for an WASHING MACHINE LOADER referral through her PCP and has not been able to see one yet. She is unsure when her last Pap smear was. Related Data Home Medications ?Medication ?Instructions ?Recorded ?Confirmed acetaminophen 500 mg tablet 500 mg PO .4-6 PRN pain 04/03/25 04/03/25 alprazolam 0.5 mg tablet (Xanax) 0.5 mg PO BID PRN anxiety 04/03/25 04/03/25 baclofen 10 mg tablet 10 mg PO BID PRN muscle spasm 04/03/25 04/03/25 escitalopram oxalate 10 mg tablet 10 mg PO QDAY 04/03/25 04/03/25 metformin 500 mg tablet 500 mg PO QDAY 04/03/25 04/03/25 sertraline 25 mg tablet 25 mg PO QDAY 04/03/25 04/03/25 Previous Rx's ?Medication ?Instructions ?Recorded aspirin 81 mg tablet,delayed 81 mg PO QDAY #90 tabs 04/04/25 release bumetanide 2 mg tablet 2 mg PO QDAY #90 tabs 04/04/25 losartan 25 mg tablet 25 mg PO QDAY #90 tabs 04/04/25 metoprolol succinate 25 mg 25 mg PO QDAY #90 tabs 04/04/25 tablet,extended release 24 hr spironolactone 25 mg tablet 25 mg PO QDAY #90 tabs 04/04/25 (Aldactone) tranexamic acid 650 mg tablet 650 mg PO Q8H 5 days #15 tabs 06/18/25 Allergies Allergy/AdvReac Type Severity Reaction Status Date / Time diphenhydramine Allergy Mild ANAPHALATIC Verified 06/17/25 21:46 REACTION Review of Systems Review of Systems Narrative Review of Systems: Constitutional: No fever, chills, fatigue, weakness, weight loss HEENT: No eye pain, vision loss, ear pain, hearing loss, dysphagia, Cardiovascular: No chest pain, palpitations, edema, pain with walking Respiratory: No cough, shortness of breath, wheezing GI: No NVD, + abdominal pain, no constipation, blood in stool, loss of appetite, heartburn : + Vaginal bleeding Extremities: No presence of pitting edema MSK: No back pain, joint pain, joint swelling Neuro: No dizziness, numbness, weakness, headaches, seizures, tremors Psych: No anxiety, depression ED Exam Narrative Physical exam: General: AAOx3, in mild distress HEENT: Moist mucous membranes, conjunctiva clear, EOMI, PERRLA, Cardiovascular: S1, S2, radial pulses +2 bilat, RRR Pulmonary: CTAB bilat no cough, no wheezing GI: No tenderness to light or deep palpitation, no guarding, rigidity, rebound tenderness or distension : Vaginal bleeding present Extremities: No presence of trace or pitting edema in lower extremities bilaterally, dorsalis pedis pulses +2 bilaterally Neuro: AAOx3, no focal motor or sensory deficits in the UE or LE bilat Psych: Cooperative Course Quality Measures none Orders Category Date Time Status EKG (ED ONLY) *Do not use* NOW Care 06/17/25 21:59 Active Insert IV NOW Care 06/17/25 21:[address] abdomen pelvis wo con Stat Exams 06/17/25 21:59 Completed EKG (ED Only) Stat Exams 06/17/25 21:59 Draft US transvaginal Stat Exams 06/17/25 22:08 Completed XR chest 1V portable Stat Exams 06/17/25 22:03 Completed CBC Stat Lab 06/17/25 22:22 Completed CMP [Comprehensive Metabolic Panel] Stat Lab 06/17/25 22:22 Completed Drug Screen,Urine Stat Lab 06/17/25 22:00 Ordered HCG,Qualitative Serum Stat Lab 06/17/25 22:22 Completed Lipase Stat Lab 06/17/25 22:22 Completed Mag [Magnesium] Stat Lab 06/17/25 22:22 Completed PT [Prothrombin Time with INR] Stat Lab 06/17/25 22:22 Completed PTT [Partial Thromboplastin Time] Stat Lab 06/17/25 22:22 Completed TSH [Thyroid Stimulating Hormone] Stat Lab 06/17/25 22:22 Completed Troponin I Stat Lab 06/17/25 22:22 Completed Type and Screen Stat Lab 06/17/25 22:22 Completed UA, C/S IF [Urinalysis, C/S if Indicated] Stat Lab 06/17/25 22:10 Ordered Acetaminophen Tab [Tylenol Tab] Med 06/18/25 00:50 Once 650 mg PO X1 ONE Ketorolac Inj [Toradol Inj] Med 06/17/25 22:07 Discontinued 30 mg IVP X1 ONE Morphine* Inj Med 06/17/25 23:17 Discontinued 4 mg IVP X1 ONE Sodium Chloride 0.9% 1000 ml [Ns] 1,000 ml Med 06/17/25 22:00 Discontinued IV 999 mls/hr Vital Signs Vital signs: Vital Signs Temperature 98.1 F 06/17/25 22:12 Pulse Rate 95 06/17/25 22:12 Respiratory Rate 18 06/17/25 22:12 Blood Pressure 123/80 06/17/25 22:12 Pulse Oximetry (%) 100 06/17/25 22:12 Oxygen Delivery Method Room Air 06/17/25 22:12 Discharge Plan Plan Patient Disposition: HOME (Self Care) Prescriptions/Referrals Prescriptions/Med Rec: New tranexamic acid 650 mg tablet 650 mg PO Q8H 5 Days Qty: 15 0RF Rx Instructions: Take one tablet by mouth every eight hours No Action acetaminophen 500 mg tablet 500 mg PO .4-6 PRN (Reason: pain) baclofen 10 mg tablet 10 mg PO BID PRN (Reason: muscle spasm) Rx Instructions: Take 1 tablet 2 times per day as needed- muscle spasm for 5 days escitalopram oxalate 10 mg tablet 10 mg PO QDAY alprazolam [Xanax] 0.5 mg tablet 0.5 mg PO BID PRN (Reason: anxiety) sertraline 25 mg tablet 25 mg PO QDAY metformin 500 mg tablet 500 mg PO QDAY bumetanide 2 mg tablet 2 mg PO QDAY Qty: 90 0RF Rx Instructions: Hold if Blood pressure BELOW 80/60 aspirin 81 mg Tablet,Delayed Release (Dr/Ec) 81 mg PO QDAY Qty: 90 0RF metoprolol succinate 25 mg tablet extended release 24 hr 25 mg PO QDAY Qty: 90 0RF Rx Instructions: Hold if Blood pressure BELOW 80/60 spironolactone [Aldactone] 25 mg tablet 25 mg PO QDAY Qty: 90 0RF Rx Instructions: Hold if Blood pressure BELOW 80/60 mmHg losartan 25 mg tablet 25 mg PO QDAY Qty: 90 0RF Rx Instructions: Hold if Blood pressure BELOW 80/60 Referrals: No Primary/Family,Physician [Primary Care Provider] - In 1 week Problem List Clinical Impression: Abnormal uterine bleeding Patient/Caregiver Discharge Instructions Discharge Activity: activity as tolerated Additional Instructions: Discharge instructions Follow-up with your PCP within 1 week Have your PCP expedite referral with your PCP Continue taking Eliquis as this is for your pulmonary embolism Continue taking tranexamic Axid as prescribed If you begin bleeding from the vaginal vault or rectal area, come to the ER immediately Have your PCP order you a complete blood count outpatient to monitor hemoglobin. You may need to have an MRI to further evaluate uterine bleeding in the outpatient setting Take your medicines as prescribed Return to ED if your symptoms worsen or return Print Language: Yoruba Stand Alone Forms: [employer]ya Award Info., Patient Portal Info Letter [facility] Medical Records reviewed Medical Records additional comments: 0015: Patient evaluated for vaginal bleeding, ordered CT abdomen pelvis in addition to transvaginal ultrasound. Ordered additional labs including CBC CMP with type and screen, give additional pain medicine of Toradol. Did urine hCG 2320: Patient continued to have pain, will give IV morphine, chest x-ray clear, transvaginal ultrasound shows no intrauterine gestation or mass at this time. Pending CT abdomen pelvis read. Gave morphine 4 mg IV for pain. 0050: CT Abd/Pelvis reviewed, shows abdominal hernia defect with no endorse recent and this is chronic for the patient. Transvaginal ultrasound within normal limits endometrial stripe 0.7 cm. Spoke with W[facility]ING MACHINE LOADER, Dr. Meade who recommends TXA every 8 hours for a 5-day course. Patient will need to have W[facility]ING MACHINE LOADER referral expedited with PCP. Patient will still need to continue with Eliquis for chronic PE as this is risk benefit. Patient will need strict follow-up with PCP in addition to serial CBCs to evaluate hemoglobin as her hemoglobin was stable today at 12.5. Patient is medically cleared for discharge per EKG Interpretation EKG #1: EKG Interpretation: Sinus rhythm, heart rate 69, QTc 423, no widened QRS, no ST changes Medication Administration(s) Medication Administration History Discontinued Medications Sodium Chloride (Ns) 1,000 mls @ 999 mls/hr IV .Q1H1M ONE Stop: 06/17/25 23:00 Last Admin: 06/17/25 22:18 Dose: Not Given Documented By: LUIS F Non-Admin Reason: Discontinued Ketorolac Tromethamine (Ketorolac Inj 30 Mg/Ml Vial) 30 mg IVP X1 ONE Stop: 06/17/25 22:08 Last Admin: 06/17/25 22:19 Dose: 30 mg Documented By: LUI SF Morphine Sulfate (Morphine Sulf Inj 4 Mg/Ml Vial) 4 mg IVP X1 ONE Stop: 06/17/25 23:18 Last Admin: 06/17/25 23:43 Dose: 4 mg Documented By: LUIS F
--- NOTE | 2025-06-17 21:59 | XR_ITS ---
Examination: CT abdomen and pelvis without contrast. Coronal 3-D reconstructions. Sagittal 2-D reconstructions. Date and time of exam:June 17, 2025, 11:22 PM Indications: Vaginal bleeding and pelvic pain today CTDI: vol (mGy): 8.73 DLP: (mGycm): 474 Technique: Axial images of the abdomen have been obtained, 3 mm slice thickness Intravenous contrast material has not been administered. Low dose protocols were performed. One or more of the following dose reduction techniques were used; automated exposure control, adjustment of the mA and/or KV according to patient size, use of iterative reconstruction technique. Findings: No focal liver or splenic lesions No gallstones No pancreatic or adrenal mass. No renal or ureteral calculi. Abundant stool throughout the colon No bowel obstruction, no pericecal inflammatory change Right pelvic hernia defect, 34 mm, containing colon and small bowel but no incarcerated bowel No pelvic mass Contracted urinary bladder The osseous structures are intact Impression: Large right lateral pelvic wall hernia defect containing colon and small bowel but no incarcerated bowel or bowel obstruction
--- NOTE | 2025-06-17 21:59 | EKG_ITS ---
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1985 Requested By: Hazel Brewer Order Number: [id number] Reading MD: Hazel Brewer Measurements Intervals [place] Rate: 69 P: 50 VA: 164 QRS: -49 QRSD: 110 T: 56 QT: 423 QTc: 456 Interpretive Statements SINUS RHYTHM PATTERN CONSISTENT WITH PULMONARY DISEASE LEFT ANTERIOR FASCICULAR BLOCK [QRS AXIS <= -45, QR IN I, RS IN II] MINIMAL VOLTAGE CRITERIA FOR LVH, CONSIDER NORMAL VARIANT [MEETS CRITERIA IN ONE OF: R(aVL), S(V1), R(V5), R(V5/V6)+S(V1)] NONSPECIFIC T-WAVE ABNORMALITY Compared to ECG 04/03/2025 15:10:42 T-wave abnormality now present Myocardial infarct finding no longer present /store/S0/[id number].pdf
--- NOTE | 2025-06-17 22:03 | XR_ITS ---
Examination: AP chest single view Technique one AP portable upright chest single view Date and time: June 17, 2025, 10:10 PM, comparison April 03, 2025 Indications: Chest pain shortness of breath today. Findings: No significant cardiac enlargement Stable small granuloma right lower lobe No pneumonia or pulmonary edema The osseous structures are intact Impression: No active disease
--- NOTE | 2025-06-17 22:08 | XR_ITS ---
Examination: Transvaginal ultrasound of the pelvis, complete Technique: Transvaginal sonographic images pelvis performed using olsen scale imaging Exam date and time: June 17, 2025, 1030 hrs. Indications: Vaginal bleeding and pelvic pain beginning 1900 hrs. Today Findings: Uterus 8.4 cm, endometrial stripe 0.7 cm, no uterine mass or intrauterine gestation Right ovary obscured by bowel gas Left ovary 3.2 cm arterial flow small follicles, the largest 10 mm Impression: No uterine mass or intrauterine gestation.
[2025-06-17 22:12] VITALS: BP 123/80; PULSE 95; RESP 18; TEMP 36.7; O2SAT 100
[2025-06-17] MEDS: KETOROLAC INJ 30 MG/ML VIAL IVP (22:19)
[2025-06-17 22:31] LABS: Basophils # (Auto) 0.1 Thou/mm3 (0.0-0.2); Basophils % (Auto) 1 % (0-2.5); Eosinophils # (Auto) 0.2 Thou/mm3 (0.0-0.5); Eosinophils % (Auto) 2 % (0-10); Hematocrit 39.1 % (36.0-46.0); Hemoglobin 12.5 g/dL (12.0-16.0); Immature Granulocytes Auto 0.04 Thou/mm3 (0.00-0.00); Lymphocytes # (Auto) 2.6 Thou/mm3 (1.0-4.8); Lymphocytes % (Auto) 33 % (10-50); Mean Corpuscular HGB Conc 32.0 g/dl (31.0-37.0); Mean Corpuscular Hemoglobin 26.3 pg (25.0-35.0); Mean Corpuscular Volume 82 fL (80-100); Monocytes # (Auto) 0.7 Thou/mm3 (0.0-0.8); Monocytes % (Auto) 9 % (0-12); Neutrophils # (Auto) 4.3 Thou/mm3 (1.8-7.7); Neutrophils % (Auto) 55 % (37-80); Nucleated Red Blood Cell # 0.00 Thou/mm3 (0.00-0.00); Nucleated Red Blood Cell % 0 /100 WBC (0); Platelet Count 216 Thou/mm3 (140-440); RDW Standard Deviation 58.0 fL (36.4-46.3); Red Blood Count 4.75 Miln/mm3 (4.00-5.20); White Blood Count 7.9 Thou/mm3 (3.6-11.0)
[2025-06-17 22:49] LABS: INR 1.1 (0.9-1.3); Partial Thromboplastin Time 30.5 Seconds (22.0-36.0); Prothrombin Time 11.4 Seconds (9.0-12.2)
[2025-06-17 22:51] LABS: Alanine Aminotransferase 12 U/L (10-49); Albumin, Serum 4.3 gm/dL (3.5-5.0); Albumin/Globulin Ratio 1.7 (1.2-2.2); Alkaline Phosphatase 96 U/L (46-116); Anion Gap 8 (7-16); Aspartate Amino Transferase 23 U/L (0-34); BUN/Creatinine Ratio 6 Ratio (12-20); Bilirubin,Total 0.3 mg/dL (0.3-1.2); Blood Urea Nitrogen 5 mg/dL (9-23); Calcium 8.9 mg/dL (8.3-10.6); Calcium (Corrected) 8.9 mg/dL (8.5-10.1); Carbon Dioxide 27.4 mMol/L (20.0-31.0); Chloride 104 mMol/L (98-107); Creatinine (Component) 0.9 mg/dL (0.6-1.3); Estimated Creatinine Clearance 81.4 mL/min (>60); Globulin 2.5 gm/dL (2.3-3.5); Glucose 95 mg/dL (74-106); Lipase 27 U/L (12-53); Magnesium 1.6 mg/dL (1.6-2.6); Osmolality,Calculated 274 (275-295); Potassium 3.6 mMol/L (3.4-5.1); Sodium 139 mMol/L (136-145); Thyroid Stimulating Hormone 1.28 uIU/mL (0.55-4.78); Total Protein 6.8 gm/dL (5.7-8.2); Troponin I < 0.020 ng/mL (0.0-0.045); eGFR > 60 See Note
[2025-06-17 23:11] LABS: HCG,Qualitative Serum Negative
[2025-06-17] MEDS: MORPHINE SULF INJ 4 MG/ML VIAL IVP (23:43)
[2025-06-18] MEDS: ACETAMINOPHEN 325 MG TABLET 650 MG PO (00:57)
[2025-06-18 00:58] VITALS: BP 123/90; PULSE 92; RESP 18; TEMP 36.6; O2SAT 99
== END 2025-06-18 01:04 | disposition home or self-care (01) ==
PROVIDERS: Emergency Medicine
DX: N93.9 Abnormal uterine and vaginal bleeding, unspecified (principal); E11.9 Type 2 diabetes mellitus without complications; I10 Essential (primary) hypertension; Z87.891 Personal history of nicotine dependence
CPT/HCPCS: 36415; 71045; 74176; 76830; 80053; 80307; 81001; 81025; 83690; 83735; 84443; 84484; 84703; 85025; 85610; 85730; 86850; 86900; 86901; 96374; 96375; 99285; J1885; J2270; A9270

== ENCOUNTER 2025-08-30 14:36 | Emergency (ER) | payer OTHER, SELFPAY ==
[2025-08-30 14:38] VITALS: BP 113/76; PULSE 64; RESP 20; TEMP 30.9; O2SAT 98; BMI 29.9
--- NOTE | 2025-08-30 14:40 | XR_ITS ---
EXAMINATION: AP chest single view TECHNIQUE: AP portable upright chest single view Date and time: August 30, 2025, 1542 hours, comparison June 17, 2025 INDICATIONS: Chest pain today. FINDINGS: Normal heart size Lungs are clear. Mild osteopenia. IMPRESSION: No active disease Stable small pulmonary nodule right lower lobe compared to July 14, 2009
--- NOTE | 2025-08-30 14:40 | EKG_ITS ---
[facility] Test Date: 2025-08-30 Pat Name: TRENT WADE Department: Room: - Gender: Female [employer]: : 1985 Requested By: Dennis Spicer Order Number: [id number] Reading MD: Dennis Spicer Measurements Intervals [place] Rate: 57 P: 64 W[place]: 176 QRS: -43 QRSD: 108 T: -58 QT: 469 QTc: 460 Interpretive Statements SINUS BRADYCARDIA WITH OCCASIONAL SUPRAVENTRICULAR PREMATURE COMPLEXES LEFT AXIS DEVIATION [QRS AXIS < -30] ANTEROSEPTAL MYOCARDIAL INFARCTION , OF INDETERMINATE AGE [40+ ms Q WAVE IN V1-V4] MODERATE T-WAVE ABNORMALITY, CONSIDER LATERAL ISCHEMIA [-0.1+ mV T-WAVE IN I/aVL/V5/V6] MODERATE T-WAVE ABNORMALITY, CONSIDER INFERIOR ISCHEMIA [-0.1+ mV T-WAVE IN II/aVF] Compared to ECG 06/17/2025 23:25:15 Left-axis deviation now present Myocardial infarct finding now present Possible ischemia now present Sinus rhythm no longer present Left anterior fascicular block no longer present T-wave abnormality still present /store/S0/[id number]/ecg/[id number].pdf
--- NOTE | 2025-08-30 14:41 | PD.EDADULT ---
ED General RME/HPI General Chief complaint: Dizziness Stated complaint: DIZZINESS Time Seen by Provider: 08/30/25 14:40 Arrival date/time: 08/30/25 14:36 CC: Chest pain and dizziness HPI EMS report the patient onset after an argument with the neighbor. EMS reports stable vital signs and route. Patient states she continues to have chest pressure and dizziness. Patient states she has a stent and is on 3 blood thinners . Patient is awake alert oriented nontoxic-appearing agitated but not in any acute distress. Related Data Home Medications ?Medication ?Instructions ?Recorded ?Confirmed acetaminophen 500 mg tablet 500 mg PO .4-6 PRN pain 04/03/25 04/03/25 alprazolam 0.5 mg tablet (Xanax) 0.5 mg PO BID PRN anxiety 04/03/25 04/03/25 baclofen 10 mg tablet 10 mg PO BID PRN muscle spasm 04/03/25 04/03/25 escitalopram oxalate 10 mg tablet 10 mg PO QDAY 04/03/25 04/03/25 metformin 500 mg tablet 500 mg PO QDAY 04/03/25 04/03/25 sertraline 25 mg tablet 25 mg PO QDAY 04/03/25 04/03/25 Previous Rx's ?Medication ?Instructions ?Recorded aspirin 81 mg tablet,delayed 81 mg PO QDAY #90 tabs 04/04/25 release bumetanide 2 mg tablet 2 mg PO QDAY #90 tabs 04/04/25 losartan 25 mg tablet 25 mg PO QDAY #90 tabs 04/04/25 metoprolol succinate 25 mg 25 mg PO QDAY #90 tabs 04/04/25 tablet,extended release 24 hr spironolactone 25 mg tablet 25 mg PO QDAY #90 tabs 04/04/25 (Aldactone) Allergies Allergy/AdvReac Type Severity Reaction Status Date / Time diphenhydramine Allergy Mild ANAPHALATIC Verified 08/30/25 15:46 REACTION Review of Systems Review of Systems Narrative Review of Systems: GEN: No fever, no chills, no weight loss EYES: No discharge, no visual changes, no pain HEENT: No ear pain, no congestion, no sore throat PULM: No shortness of breath, no cough, no congestion CV: + chest pain, no dyspnea on exertion, no palpitations GI: No nausea, no vomiting, no diarrhea, no pain, no constipation : No frequency, no urgency, no dysuria MUSC/SKEL: No joint pain, no back pain SKIN: No rash PSYCH: No hallucinations, no depression HEME/LYMPH: No easy bleeding or bruising tendencies NEURO: No weakness, no headache Past Medical History Past Medical History NEUROLOGIC: Negative Neurological Disorders CARDIAC: Positive Cardiac Disorders and Congestive Heart Failure RESPIRATORY: Negative Chronic Obstructive Pulmonary Disease (COPD) GASTROINTESTINAL: Negative Gastrointestinal Disorders GENITOURINARY: Negative Genitourinary Disorders or Renal Disease REPRODUCTIVE: Positive Previous Pregnancies () MUSCULOSKELETAL: Negative Musculoskeletal Disorders ENDOCRINE: Positive Diabetes Mellitus Type 2; Negative Endocrine Disorders or Diabetes Mellitus Type 1 HEMATOLOGIC: Negative Blood Disorders PSYCHO/SOCIAL: Positive Depression and Anxiety OTHER HISTORY: Positive Blood Transfusions; Negative Autoimmune Disease, Anesthesia Reactions or Organ Transplant Family History FAMILY HISTORY: Positive Family Respiratory Disorders, Family Cardiac Disorders and Family Cancer; Negative Family Psychiatric Problems, Family Gastrointestinal Problems, Family Surgery or Family Anesthesia Reaction Surgical History SURGICAL: Positive Arthroscopy (Right knee); Negative Cardiac Surgery, Endocrine Surgery, Ear Surgery, Abdominal Surgery, Nephrectomy, Joint Replacement, Neurologic Surgery, Lumpectomy or Organ Transplant Social History SMOKING STATUS: Current some day smoker ED Exam Narrative Physical exam: [General: Mildly Bandar but not in any acute distress Head normocephalic HEENT: Eyes pupils are PERRLA EOMs are intact mouth pink dry membranes uvula is midline swallow symmetrical all the subsystems of HEENT are within acceptable limits Neck is supple nontender Chest equal chest rise nontender to palpation Respiratory: Clear to auscultation no wheezes crackles or rubs CV: Rate rhythm is regular no murmurs rubs or clicks Abdomen is soft nontender no masses positive bowel sounds all 4 quadrants Back: No CVA tenderness no spinous process tenderness from cervical spine thoracic and lumbar spine Skin: Intact no petechiae rash induration ulceration or crepitus Extremities: Moving all extremity against resistance cap refill less than 2 seconds neurosensory intact Neuro: Awake alert oriented x3 Glascow coma 15 no focal deficits] Course Quality Measures none Orders Category Date Time Status EKG (ED ONLY) *Do not use* NOW Care 08/30/25 14:40 Completed EKG (ED Only) Stat Exams 08/30/25 14:40 Draft XR chest 1V Stat Exams 08/30/25 14:40 Completed B-Type Natriuretic Peptide Stat Lab 08/30/25 15:32 Completed CBC Stat Lab 08/30/25 15:32 Completed Comprehensive Metabolic Panel Stat Lab 08/30/25 15:32 Completed Drug Screen,Urine Stat Lab 08/30/25 16:08 Completed LDH (Lactate Dehydrogenase) Stat Lab 08/30/25 15:32 Completed Magnesium Stat Lab 08/30/25 15:32 Completed Partial Thromboplastin Time Stat Lab 08/30/25 15:32 Completed Prothrombin Time with INR Stat Lab 08/30/25 15:32 Completed Troponin I Stat Lab 08/30/25 15:32 Completed Troponin I Stat Lab 08/30/25 19:13 Completed Urinalysis, C/S if Indicated Stat Lab 08/30/25 16:08 Completed Vital Signs Vital signs: Vital Signs Temperature 87.6 F L 08/30/25 14:38 Pulse Rate 64 08/30/25 14:38 Respiratory Rate 20 08/30/25 14:38 Blood Pressure 113/76 08/30/25 14:38 Pulse Oximetry (%) 98 08/30/25 14:38 Oxygen Delivery Method Room Air 08/30/25 14:38 Discharge Plan Plan Patient Disposition: HOME (Self Care) Patient condition on transfer: Stable Prescriptions/Referrals Prescriptions/Med Rec: No Action acetaminophen 500 mg tablet 500 mg PO .4-6 PRN (Reason: pain) baclofen 10 mg tablet 10 mg PO BID PRN (Reason: muscle spasm) Rx Instructions: Take 1 tablet 2 times per day as needed- muscle spasm for 5 days escitalopram oxalate 10 mg tablet 10 mg PO QDAY alprazolam [Xanax] 0.5 mg tablet 0.5 mg PO BID PRN (Reason: anxiety) sertraline 25 mg tablet 25 mg PO QDAY metformin 500 mg tablet 500 mg PO QDAY bumetanide 2 mg tablet 2 mg PO QDAY Qty: 90 0RF Rx Instructions: Hold if Blood pressure BELOW 80/60 aspirin 81 mg Tablet,Delayed Release (Dr/Ec) 81 mg PO QDAY Qty: 90 0RF metoprolol succinate 25 mg tablet extended release 24 hr 25 mg PO QDAY Qty: 90 0RF Rx Instructions: Hold if Blood pressure BELOW 80/60 spironolactone [Aldactone] 25 mg tablet 25 mg PO QDAY Qty: 90 0RF Rx Instructions: Hold if Blood pressure BELOW 80/60 mmHg losartan 25 mg tablet 25 mg PO QDAY Qty: 90 0RF Rx Instructions: Hold if Blood pressure BELOW 80/60 Referrals: No Primary/Family,Physician [Primary Care Provider] - In 1 week Nishant Pérez MD [Physician, Family Practice] - In 1 week Problem List Clinical Impression: Chest pain Patient/Caregiver Discharge Instructions Other Activity Instructions:: Follow-up with your primary care doctor. Education Materials: ED Chest Pain, Uncertain Cause Print Language: Senegalese Stand Alone Forms: Mireya Award Info., Work/School Release, Patient Portal Info Letter JENNIFER/ARELY Supervising Physician JENNIFER/ARELY Supervising Physician: Dennis Vides ENP [facility] Clinical Information Provided by: patient and EMS Medical Records reviewed [facility] and EMS Meds/Rx considered, not ordered None Labs/Rad/Tests considered, not ordered None Chronic Illness/Social Conditions which may negatively complicate care or outcome(s)-explain: CHF/CAD/Cardiac illness EKG Interpretation EKG #1: EKG Interpretation: EKG performed at 1527 shows a ventricular rate of 5 7 CO interval 176 QRS of 108 QTc of 464 sinus bradycardia. Labs Labs: interpreted by ia Lab(s) Interpretation(s): CBC shows no leukocytosis the patient has an anemia with a hemoglobin of 10.6 hematocrit of 33.2. No thrombocytopenia Coags within acceptable limits CMP shows no significant electrolyte imbalances except for a low glucose. No transaminitis or T. bili elevation Troponin is negative BNP is negative. Urine is negative for UTI. UDS positive for opiates. Delta troponin is negative patient to be discharged home. Imaging Imaging Interpretation(s): Stable pulmonary nodule no other acute finding
[2025-08-30 15:35] VITALS: PULSE 70; RESP 20; O2SAT 100
[2025-08-30 15:38] LABS: Basophils # (Auto) 0.1 Thou/mm3 (0.0-0.2); Basophils % (Auto) 1 % (0-2.5); Eosinophils # (Auto) 0.2 Thou/mm3 (0.0-0.5); Eosinophils % (Auto) 2 % (0-10); Hematocrit 33.2 % (36.0-46.0); Hemoglobin 10.6 g/dL (12.0-16.0); Immature Granulocytes Auto 0.03 Thou/mm3 (0.00-0.00); Lymphocytes # (Auto) 2.0 Thou/mm3 (1.0-4.8); Lymphocytes % (Auto) 23 % (10-50); Mean Corpuscular HGB Conc 31.9 g/dl (31.0-37.0); Mean Corpuscular Hemoglobin 28.4 pg (25.0-35.0); Mean Corpuscular Volume 89 fL (80-100); Monocytes # (Auto) 0.5 Thou/mm3 (0.0-0.8); Monocytes % (Auto) 6 % (0-12); Neutrophils # (Auto) 6.2 Thou/mm3 (1.8-7.7); Neutrophils % (Auto) 68 % (37-80); Nucleated Red Blood Cell # 0.00 Thou/mm3 (0.00-0.00); Nucleated Red Blood Cell % 0 /100 WBC (0); Platelet Count 246 Thou/mm3 (140-440); RDW Standard Deviation 41.8 fL (36.4-46.3); Red Blood Count 3.73 Miln/mm3 (4.00-5.20); White Blood Count 9.0 Thou/mm3 (3.6-11.0)
[2025-08-30 15:53] LABS: INR 1.0 (0.9-1.3); Partial Thromboplastin Time 27.3 Seconds (22.0-36.0); Prothrombin Time 11.0 Seconds (9.0-12.2)
[2025-08-30 15:56] LABS: B-Type Natriuretic Peptide 82 pg/mL (0-100)
[2025-08-30 16:04] LABS: Alanine Aminotransferase 23 U/L (10-49); Albumin, Serum 4.7 gm/dL (3.5-5.0); Albumin/Globulin Ratio 1.7 (1.2-2.2); Alkaline Phosphatase 83 U/L (46-116); Anion Gap 2 (7-16); Aspartate Amino Transferase 25 U/L (0-34); BUN/Creatinine Ratio 13 Ratio (12-20); Bilirubin,Total 0.6 mg/dL (0.3-1.2); Blood Urea Nitrogen 13 mg/dL (9-23); Calcium 9.1 mg/dL (8.3-10.6); Calcium (Corrected) 9.1 mg/dL (8.5-10.1); Carbon Dioxide 32.4 mMol/L (20.0-31.0); Chloride 103 mMol/L (98-107); Creatinine (Component) 1.0 mg/dL (0.6-1.3); Estimated Creatinine Clearance 78.1 mL/min (>60); Globulin 2.8 gm/dL (2.3-3.5); Glucose 57 mg/dL (74-106); LDH (Lactate Dehydrogenase) 200 U/L (120-246); Magnesium 1.8 mg/dL (1.6-2.6); Osmolality,Calculated 271 (275-295); Potassium 4.7 mMol/L (3.4-5.1); Sodium 137 mMol/L (136-145); Total Protein 7.5 gm/dL (5.7-8.2); Troponin I < 0.020 ng/mL (0.0-0.045); eGFR > 60 See Note
[2025-08-30 16:29] LABS: Collection Type, Urine Clean Catch; WBC,Urine 0 /hpf (0-5)
[2025-08-30 16:30] VITALS: BP 100/60; PULSE 55; RESP 16; TEMP 36.6; O2SAT 100
[2025-08-30 16:42] LABS: Amphetamine/Methamp Scrn,U Negative (Negative); Barbiturate Screen,Urine Negative (Negative); Benzodiazepines Screen,Urine Negative (Negative); Benzoylecgonine Screen, Ur Negative (Negative); Fentanyl Screen,Urine Negative (Negative); Opiate Screen,Urine Positive (Negative); THC Screen,Urine Negative (Negative)
[2025-08-30 16:44] LABS: Bacteria,Urine Rare; Bilirubin,Urine Negative (Negative); Blood,Urine 3+ (Negative); Clarity,Urine Clear (Clear/Hazy); Color,Urine Colorless (Lt Yel-Yel); Culture Indicated,Urine Not Indicated; Glucose, Urine Negative (Negative); Ketones,Urine Negative (Negative); Leukocyte Esterase,Urine Negative (Negative); Nitrite,Urine Negative (Negative); PH,Urine 6.0 (5.0-7.0); Protein,Urine Negative (Neg - Trace); RBC,Urine 26 /hpf (0-3); Specific Gravity,Urine 1.006 (1.001-1.035); Squamous Epithelial Cell,Urine 1 /hpf (0-5); Urobilinogen,Urine Negative mg/dL (0.0-1.0)
[2025-08-30 19:37] VITALS: BP 119/75; PULSE 56; RESP 17; TEMP 36.8; O2SAT 100
[2025-08-30 19:58] LABS: Troponin I < 0.020 ng/mL (0.0-0.045)
[2025-08-30] MEDS: ACETAMINOPHEN 325 MG TABLET 650 MG PO (20:21)
== END 2025-08-30 20:24 | disposition home or self-care (01) ==
PROVIDERS: Registered Nurse General Practice; Emergency Provider Emergency Medicine
DX: R07.9 Chest pain, unspecified (principal); R91.1 Solitary pulmonary nodule; R00.1 Bradycardia, unspecified; I49.1 Atrial premature depolarization; I50.9 Heart failure, unspecified
CPT/HCPCS: 36415; 71045; 80053; 80307; 81001; 83615; 83735; 83880; 84484; 85025; 85610; 85730; 93005; 99283; A9270